=== PATIENT | male | born 1950 | race Caucasian/White ===

== ENCOUNTER → 2018-12-03 | Outpatient (CLI) | payer MEDICARE ==
[~2018-12-03] MED LIST: AMLODIPINE BESY10 MG PO; ARED2 PO; BUPROPION HCL150 M2 PO; STIOLTO RESPIMAT PO; TYLENOL WITH C1 EACH PO
--- NOTE | 2018-12-03 13:21 | Diagnostic Imaging Report ---
Thyroid ultrasound. History: Hypothyroidism Comparison: <None available>. Discussion: Transverse and longitudinal images of the thyroid were obtained demonstrating normal echogenicity of the thyroid. The sizes of the lobes are normal with the right thyroid lobe measuring 5.4 x 2.8 x 2.2 cm and the left measuring 4.0 x 1.5 x 1.6 cm. The isthmus is within normal limits measuring 0.4 cm. No nodules or masses are present. IMPRESSION: Normal thyroid ultrasound. Signed by: Dr. Giorgio Sullivan DO on 12/03/2018 1:17 PM
== END ==
LOC: US 11:03
PROVIDERS: ATTEND Family Medicine
DX: E03.9 Hypothyroidism, unspecified (principal)
CPT/HCPCS: 76536

== ENCOUNTER 2019-10-31 14:30 | Emergency (ER) | payer MEDICARE ==
[~2019-10-31] VITALS: Ht 190.5 cm; Wt 98.4 kg
--- OUTSIDE RECORDS SUMMARY | 2019-10-31 14:33 | XMS REPORT | Clinical Summary ---
Author Author [facility] Address Unknown Phone Unavailable Care Team Providers Care Lens Coater Name Role Phone Erasto Larkin MD PCP Allergies Not on File Medications Not on file Active Problems Not on file Encounters Care Team Description Date Type Specialty Shawn Pringle MD Dyspnea, unspecified type 03/02/2019 Hospital Radiology Encounter Shawn Pringle MD Dyspnea, unspecified type (Primary Dx) 03/02/2019 Transcribe Access Orders after 10/30/2018 Social History Date Tobacco Use Types Packs/Day Years Used Never Assessed Sex Assigned at Date Recorded Not on file Industry Job Start Date Occupation Not on file Not on file Not on file Travel End Travel History Travel Start No recent travel history available. Last Filed Vital Signs Not on file Plan of Treatment Health Maintenance Due Date Last Done Comments COLONOSCOPY SCREENING 2001 SHINGLES VACCINES (#1) 2001 65+ PNEUMOCOCCAL VACCINE 2016 04/18/2008, (2 of 2 - PPSV23) 06/23/2003 INFLUENZA VACCINE 01/22/2020 Procedures Comments Procedure Name Priority Date/Time Associated Diag nosis XR CHEST 2 VW Routine 03/02/2019 Dyspnea, unspec ified type 4:21 PM CDT after 10/30/2018 Results * XR Chest 2 Vw (03/02/2019 4:21 PM CDT) Specimen Narrative Performed At EXAMINATION: XR CHEST 2 VW [facility] CLINICAL HISTORY: R06.00 Dyspnea un specified, R06.00 COMPARISON: To previous study from IMPRESSION: Marked gaseous distention of the colon is partially visualized and is without significant interval change. The lungs are hypoventilated with bibas ilar atelectatic changes present. The heart is not enlarged. [id number] Procedure Note Hm Interface, Radiology Results Incoming - 03/02/2019 4:26 PM CDT EXAMINATION: XR CHEST 2 VW CLINICAL HISTORY: R06.00 Dyspnea unspecified, R06.00 COMPARISON: To previous study from 01/20/2018 IMPRESSION: Marked gaseous distention of the colon is partially visualized and is without significant interval change. The lungs are hypoventilated with bibasilar atelectatic changes present. The heart is not enlarged. 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
--- OUTSIDE RECORDS SUMMARY | 2019-10-31 14:33 | XMS REPORT | Clinical Summary ---
Author Author [facility] Address Unknown Phone Unavailable Care Team Providers Care Associate Director Regulatory Affairs Name Role Phone PCP Unavailable Allergies Not on File Medications Not on file Active Problems Not on file Social History Date Tobacco Use Types Packs/Day Years Used Never Assessed Sex Assigned at Date Recorded Not on file Industry Job Start Date Occupation Not on file Not on file Not on file Travel End Travel History Travel Start No recent travel history available. Last Filed Vital Signs Not on file Plan of Treatment Not on file Results Not on fileafter 10/30/2018
--- OUTSIDE RECORDS SUMMARY | 2019-10-31 14:34 | XMS REPORT | Summary of Care ---
Author Author [facility] Address Unknown Phone Unavailable Encounter HQ Encntr_alias(FIN) [id number] Date(s): 07/13/16 - 07/13/16 [facility] [address] [place] [address]- Final: Malignant neoplasm of lower gum Discharge Disposition: Home or Self Care Attending Physician: Efraín Butler DDS, MD Referring Physician: Efraín Butler DDS, MD Vital Signs No data available for this section Problem List No data available for this section Allergies, Adverse Reactions, Alerts No data available for this section Medications No data available for this section Results No data available for this section Immunizations No data available for this section Procedures No data available for this section Social History No data available for this section Assessment and Plan No data available for this section
--- OUTSIDE RECORDS SUMMARY | 2019-10-31 14:34 | XMS REPORT | Summary of Care ---
Author Author [facility] Organization [facility] Address Unknown Phone Unavailable Encounter HQ Encntr_alias(FIN) [id number] Date(s): 07/15/16 - 07/15/16 [facility] [address] [place] [address]- Discharge Disposition: Home or Self Care Attending Physician: Jose Andre MD Vital Signs No data available for [...]
--- OUTSIDE RECORDS SUMMARY | 2019-10-31 14:34 | XMS REPORT | Summary of Care ---
Author Author [facility] Address Unknown Phone Unavailable Encounter HQ Neginntr_lisa(FIN) [id number] Date(s): 11/06/16 - 12/05/16 [facility] [address] [place] [address]- Discharge Disposition: Home or Self Care Attending Physician: Jose Andre MD Vital Signs No data available for this section Problem List Condition Effective Dates Status Health Status Informan t COPD (chronic Active obstructive pulmonary disease)(Confirmed) HTN Active (hypertension)(Confi rmed) Allergies, Adverse Reactions, Alerts Substance Reaction Severity Status NKDA Active Medications No data available for this section Results No data available for this section Immunizations No data available for this section Procedures No data available for this section Social History Social History Type Response Smoking Status Former smoker; Type: Cigare ttes; Previous treatment: None; Ready to change: No; Concerns about tobacco use in house hold: No; Exposure to Tobacco Smoke None; Cigarette Smoking Last 365 Days N o; Reg Smoking Cessation Counseling No Assessment and Plan No data available for this section
--- OUTSIDE RECORDS SUMMARY | 2019-10-31 14:34 | XMS REPORT | Continuity of Care Document ---
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 06/26/2016 [facility] CONSULT Active 06/23/2016 [facility] CONSULY Active 08/22/2015 [facility] Chronic obstructive lung disease (disorder) Active Problem 01/05/2017 [facility] Hypertensive disorder, systemic arterial (disorder) Active Problem 01/05/2017 [facility] Final: Malignant neoplasm of lower gum 07/16/2016 [facility] MALIGNANT NEOPLASM OF LOWER GUM Active [facility] MALIGNANT NEOPLASM OF PROSTATE Active [facility] Medications Medication Details Route Status Patient Instructions Ordering Provider Order Date Source chlorhexidine gluconate 1.2 MG/ML Mouthwash Notes: (Same As: Peridex) Inactive 08/07/2016 [facility] chlorhexidine gluconate 1.2 MG/ML Mouthwash 0.018 gm = 15 mL, S&SPIT, BID, 0 Refill(s) Active 08/07/2016 [facility] Amoxicillin 875 MG / Clavulanate 125 MG Oral Tablet [Augmentin 875-mg] Notes: With food. (Same as: Augmentin 87 5) Inactive 08/07/2016 [facility] amLODIPine 5 mg oral tablet 5 mg = 1 tab, PO, Daily, 0 Refill(s) Active 08/07/2016 [facility] potassium phosphate-sodium phosphate 250 mg-280 mg-160 mg oral powder for reconstitution 2 pkt, PO, TID-Meals, 0 Refill(s) Active 08/07/2016 [facility] ondansetron 2 mg/mL injectable solution 4 mg = 2 mL, IVP, Q6H, PRN as needed for nausea/vomiting, 0 Refill(s) Active 08/07/2016 [facility] Melatonin DHT, Bedtime, PRN as needed for insomnia, 0 Refill(s) Active 08/07/2016 [facility] heparin 7,500 unit = 1.5 mL, S UB-Q, Q8H, 0 Refill(s) Active 08/07/2016 [facility] Aspirin 325 MG Oral Tablet 325 mg = 1 tab, DHT, Daily, 0 Refill(s) Active 08/07/2016 [facility] Amoxicillin 875 MG / Clavulanate 125 MG Oral Tablet [Augmentin 875-mg] 1 tab, DHT, Q12H, 0 Refill(s) Active 08/07/2016 [facility] Albuterol 0.833 MG/ML / Ipratropium Brom virgie 0.167 MG/ML Inhalant Solution [DuoNeb] 3 mL, NEB, RQ6H, 0 Refill(s) Active 08/07/2016 [facility] Acetaminophen 1,000 mg, [place], Q6 Hnow, 0 Refill(s) Active 08/07/2016 [facility] Tums Notes: (Same As: Tums) Ca lcium Carbonate 500 mg = 200 mg elemental calcium Dose = mg calcium carbonate ( mg elemental calcium) No Longer Active 08/07/2016 [facility] Beneprotein 7 gm pkt Notes: (S carlos alberto as: Beneprotein) No Longer Active 08/05/2016 [facility] Zofran Notes: (Same as: Zofran ) MEDICATION WASTE Product Size: 4 mg Product Wasted: ___ mg No Longer Active 08/04/2016 [facility] Artificial Tears BOTH EYES, Da artem, 0 Refill(s) Active 08/03/2016 [facility] Glycopyrrolate Notes: (Same as : Ariel) No Longer Active 08/03/2016 [facility] Melatonin 0.25 mg/mL oral liquid 1 mg, 1 mL, Route: DHT, Drug Form: LIQ, Dosing Weight 113.636, kg, Bedtime, PRN as needed for insomnia, Start date: 08/03/16 10:42:00 [employer], Duration: 30 day, Stop date: 09/02/16 10:41:00 CDT No Longer Active 08/03/2016 [facility] Dulcolax Laxative Notes: (Same As: Dulcolax, Bisco-Lax) No Longer Active 08/03/2016 [facility] Tylenol Notes: Max acetaminoph en = 4000mg/day (4 gm/day). (Same as: Tylenol) N o Longer Active 08/03/2016 [facility] Aspirin 325 MG Oral Tablet Not es: Take with food. No Longer Active 08/02/2016 [facility] Acetaminophen Notes: Max aceta minophen = 4000mg/day (4 gm/day). (Same as: Tylenol) N o Longer Active 08/02/2016 [facility] Artificial Tears 1 drp, Route: Each Affected Eye, TID, Drug form: SOLN, Start date: 08/01/16 17:00:00 [employer], Duration: 30 day, Stop date: 08/31/16 13:00:00 [employer] No Longer Active 08/01/2016 [facility] PHOS-NaK Notes: (Same as: Phos -NaK) Each 1.5 gm pkt has 250mg phosphorous. Mix w/2.5oz water and stir. No Longer Active 08/01/2016 [facility] Dulcolax Laxative Notes: (Same As: Dulcolax, Bisco-Lax) Inactive 08/01/2016 [facility] Reglan Notes: (Same as: Reglan) Inactive 08/01/2016 [facility] heparin Notes: porcine heparin No Longer Active 07/31/2016 [facility] Albuterol 0.833 MG/ML / Ipratropium Brom virgie 0.167 MG/ML Inhalant Solution [DuoNeb] Notes: (Same as: Duoneb) No Longer Active 07/31/2016 [facility] Bupropion Notes: (Same As: Wel lbutrin) No Longer Active 07/31/2016 [facility] Amlodipine Notes: (Same as: No rvasc) No Longer Active 07/31/2016 [facility] Oxycodone Hydrochloride 5 MG Oral Tablet Notes: (Same as: Roxicodone) No Longer Active 07/31/2016 [facility] pregabalin Notes: (Same as: Ly marissa) Inactive 07/31/2016 [facility] celecoxib Notes: NSAID. Please check indication. Not for seizure. (Same As: CeleBREX) No Longer Active 07/31/2016 [facility] Acetaminophen Notes: Infuse ov er 15 minutes Do not exceed 4gm/day of acetaminophen MEDICATION WASTE Product Size: 1000 mg Product Wasted: ___ mg No Longer Active 07/31/2016 [facility] Bacitracin 1 appl, Route: TOP, Q8H, Drug form: OINT, thin layer to neck and face incisions, Start date: 07/31/16 0:00:00 [employer], Duration: 30 day, Stop date: 08/29/16 16:00:00 [employer] No Longer Active 07/31/2016 [facility] aspirin 325 mg tablet Notes: T rosy with food. Inactive 07/31/2016 [facility] Aspirin 300 MG Rectal Suppository Notes: Refrigerate. Inactive 07/31/2016 [facility] Propofol 10 MG/ML Injectable Suspension Notes: If Diprivan - change bottle & tubing every 12 hr Per state nursing law propofol can only be given by a nurse if patient is intubated or being intubated (unless the nurse is a RN IMAGING). Same as: Diprivan No Longer Active 07/31/2016 [facility] Fentanyl 1,000 microgram, 20 m L, Rate: Titrate, Start Dose: 50 microgram/hr, Titration: 25 microgram/hour every 15 minutes, Goal(s): RASS -2, Max Dose: 300 microgram/hr, Route: IV, Dosing Weight 113.636 kg, Total Volume: 20, Start date: 07/30/16 19:15:00 [employer],... No Longer Active 07/31/2016 [facility] Zosyn Notes: (Same as: Zosyn) Dosing based on Piperacillin component MEDICATION WASTE Product Size: 3375 mg Product Wasted: ___ mg No Longer Active 07/31/2016 [facility] Unasyn 3 gm, Route: IVPB, Drug form: PDR/INJ, ABXQ6H, Dosing Weight 113.636, kg, Start date: 07/30/16 19:00:00 [employer], Duration: 30 day, Stop date: 08/29/16 13:00:00 [employer] Inactive 07/31/2016 [facility] nt Lactated Ringers 1,000 mL 1,00 0 mL, Rate: 100 ml/hr, Infuse over: 10 hr, Route: IV, Dosing Weight 113.636 kg, Total Volume: 1,000, Start date: 07/30/16 18:25:00 [employer], Duration: 30 day, Stop date: 08/29/16 18:24:00 [employer] No Longer Active 07/31/2016 [facility] Labetalol 20 mg, 4 mL, Route: IVP, Drug form: INJ, Q6H, Dosing Weight 113.636, kg, PRN Hypertension, Goal SBP 120-140, Start date: 07/30/16 18:22:00 [employer], Duration: 30 day, Stop date: 08/29/16 18:21:00 [employer] No Longer Active 07/31/2016 [facility] Hydralazine Notes: (Same as: A presoline) Push over 5 minutes No Longer Active 07/31/2016 [facility] Metoprolol Notes: (Same as: Lo pressor) Push over 2 minutes No Longer Active 07/31/2016 [facility] Aspirin 325 MG Oral Tablet Not es: Take with food. Inactive 07/31/2016 [facility] heparin Route: IVP, ONCE, Dosi ng Weight 113.636, kg, Start date: 07/30/16 16:17:00 [employer], Stop date: 07/30/16 16:17:00 [employer] Inactive 07/30/2016 [facility] Ancef 2 gm, Route: IVPB, ONCE, Dosing Weight 113.636, kg, Start date: 07/30/16 7:50:00 [employer], Duration: 1 doses or times, Stop date: 07/30/16 7:50:00 [employer], Surgical Prophylaxis Only; For patients < 120 kg Inactive 07/30/2016 [facility] buPROPion 150 mg/24 hours oral extended release tablet 150 mg = 1 tab, PO, BID, # 30 tab, 0 Refill(s) Active 07/19/2016 [facility] amLODIPine 10 mg oral tablet 1 0 mg = 1 tab, PO, Daily, # 90 tab, 0 Refill(s) No Longer Active 07/19/2016 [facility] quinapril 20 mg oral tablet 20 mg = 1 tab, PO, BID, # 30 tab, 0 Refill(s) No Longer Active 07/19/2016 [facility] n[facility] 60 ACTUAT olodaterol 0.0025 MG/ACTUAT / tiotropium 0.0025 MG/ACTUAT Metered Dose Inhaler [Stiolto] 2 puff, INHALATION, Daily, 0 Refill(s) No Longer Active 07/19/2016 [facility] Atenolol 50 MG Oral Tablet 50 mg = 1 tab, PO, Bedtime, # 30 tab, 0 Refill(s) No Longer Active 07/19/2016 [facility] Allergies, Adverse Reactions, Alerts No Known Medication Allergies Immunizations No Data Provided for This Section Results Order Name Results Value Reference Range Date Interpretation Comments Source ELECTROLYTES AGAP 11.2 10.0 - 20.0 08/07/2016 [facility] ELECTROLYTES eGFR 89 08/07/2016 Result Comment: The eGFR is calculated using the CKD-EPI formula. In most young, healthy individuals the eGFR will be >90 mL/min/1.73m2. The eGFR declines with age. An eGFR of 60-89 may be normal in some populations, particularly the elderly, for whom the CKD-EPI formula has not been extensively validated. Use of the eGFR is not recommended in the following populations:

Individuals with unstable creatinine concentrations, including patients and those with serious co-morbid conditions.

Patients with extremes in muscle mass or diet.

The data above are obtained from the National Kidney Disease Education Program (NKDEP) which additionally recommends that when the eGFR is used in patients with extremes of body mass index for purposes of drug dosing, the eGFR should be multiplied by the estimated BMI. [facility] ELECTROLYTES Potassium Lvl 4.2 3.5 - 5.1 08/07/2016 [facility] ELECTROLYTES Sodium Lvl 145 135 - 145 08/07/2016 [facility] ELECTROLYTES Creatinine Lvl 0.9 0 0.50 - 1.40 08/07/2016 [facility] ELECTROLYTES CO2 29 24 - 32 08/07/2016 [facility] ELECTROLYTES Chloride Lvl 109 95 - 109 08/07/2016 [facility] ELECTROLYTES Calcium Lvl 8.4 8.5 - 10.5 08/07/2016 [facility] ELECTROLYTES BUN 23 7 - 22 08/07/2016 [facility] ELECTROLYTES Glucose Lvl 107 70 - 99 08/07/2016 [facility] HEMATOLOGY Segs 80.0 45.0 - 75.0 08/07/2016 [facility] HEMATOLOGY Lymphocytes 9.5 20.0 - 40.0 08/07/2016 [facility] HEMATOLOGY Eosinophils # 0.2 0.0 - 0.5 08/07/2016 [facility] HEMATOLOGY Monocytes # 1.0 0.0 - 0.8 08/07/2016 [facility] HEMATOLOGY Lymphocytes # 1.1 1.0 - 5.5 08/07/2016 [facility] HEMATOLOGY Eosinophils 1.6 0.0 - 4.0 08/07/2016 [facility] HEMATOLOGY Monocytes 8.6 2.0 - 12.0 08/07/2016 [facility] HEMATOLOGY Segs-Bands # 9.5 1.5 - 8.1 08/07/2016 [facility] HEMATOLOGY Basophils 0.3 0.0 - 1.0 08/07/2016 [facility] HEMATOLOGY MPV 9.8 7.4 - 10.4 08/07/2016 [facility] HEMATOLOGY WBC 11.8 3.7 - 10.4 08/07/2016 [facility] HEMATOLOGY RDW 15.3 11.5 - 14.5 08/07/2016 [facility] HEMATOLOGY MCH 30.7 27.0 - 31.0 08/07/2016 [facility] HEMATOLOGY Platelet 206 133 - 450 08/07/2016 [facility] HEMATOLOGY RBC 3.08 4.70 - 6.10 08/07/2016 [facility] HEMATOLOGY Hct 28.4 42.0 - 54.0 08/07/2016 [facility] HEMATOLOGY Hgb 9.5 14.0 - 18.0 08/07/2016 [facility] HEMATOLOGY MCHC 33.3 32.0 - 36.0 08/07/2016 [facility] HEMATOLOGY MCV 92.1 80.0 - 94.0 08/07/2016 [facility] ELECTROLYTES AGAP 9.9 10.0 - 20.0 08/06/2016 [facility] ELECTROLYTES eGFR 94 08/06/2016 Result Comment: The eGFR is calculated using the CKD-EPI formula. In most young, healthy individuals the eGFR will be >90 mL/min/1.73m2. The eGFR declines with age. An eGFR of 60-89 may be normal in some populations, particularly the elderly, for whom the CKD-EPI formula has not been extensively validated. Use of the eGFR is not recommended in the following populations:

Individuals with unstable creatinine concentrations, including patients and those with serious co-morbid conditions.

Patients with extremes in muscle mass or diet.

The data above are obtained from the National Kidney Disease Education Program (NKDEP) which additionally recommends that when the eGFR is used in patients with extremes of body mass index for purposes of drug dosing, the eGFR should be multiplied by the estimated BMI. [facility] ELECTROLYTES Creatinine Lvl 0.8 0 0.50 - 1.40 08/06/2016 [facility] ELECTROLYTES BUN 21 7 - 22 08/06/2016 [facility] ELECTROLYTES Glucose Lvl 110 70 - 99 08/06/2016 [facility] ELECTROLYTES CO2 30 24 - 32 08/06/2016 [facility] ELECTROLYTES Chloride Lvl 106 95 - 109 08/06/2016 [facility] ELECTROLYTES Potassium Lvl 3.9 3.5 - 5.1 08/06/2016 [facility] ELECTROLYTES Sodium Lvl 142 135 - 145 08/06/2016 [facility] ELECTROLYTES Calcium Lvl 8.2 8.5 - 10.5 08/06/2016 [facility] HEMATOLOGY Eosinophils # 0.3 0.0 - 0.5 08/06/2016 [facility] HEMATOLOGY Monocytes # 1.1 0.0 - 0.8 08/06/2016 [facility] HEMATOLOGY Segs-Bands # 7.9 1.5 - 8.1 08/06/2016 [facility] HEMATOLOGY Basophils 0.3 0.0 - 1.0 08/06/2016 [facility] HEMATOLOGY Lymphocytes 9.8 20.0 - 40.0 08/06/2016 [facility] HEMATOLOGY Eosinophils 2.7 0.0 - 4.0 08/06/2016 [facility] HEMATOLOGY Monocytes 10.5 2.0 - 12.0 08/06/2016 [facility] HEMATOLOGY Lymphocytes # 1.0 1.0 - 5.5 08/06/2016 [facility] HEMATOLOGY Segs 76.7 45.0 - 75.0 08/06/2016 [facility] HEMATOLOGY WBC 10.4 3.7 - 10.4 08/06/2016 [facility] HEMATOLOGY RDW 15.3 11.5 - 14.5 08/06/2016 [facility] HEMATOLOGY MCHC 33.3 32.0 - 36.0 08/06/2016 [facility] HEMATOLOGY Platelet 181 133 - 450 08/06/2016 [facility] HEMATOLOGY MCH 30.3 27.0 - 31.0 08/06/2016 [facility] HEMATOLOGY MCV 91.2 80.0 - 94.0 08/06/2016 [facility] HEMATOLOGY Hgb 9.9 14.0 - 18.0 08/06/2016 [facility] HEMATOLOGY RBC 3.26 4.70 - 6.10 08/06/2016 [facility] HEMATOLOGY Hct 29.7 42.0 - 54.0 08/06/2016 [facility] HEMATOLOGY MPV 10.0 7.4 - 10.4 08/06/2016 [facility] HEMATOLOGY Atypical Lymphs 0.0 <=0.0 % 08/05/2016 [facility] HEMATOLOGY Polychrom Moder ate *ABN* (08/05/16 6:07 AM) None Seen 08/05/2016 [facility] HEMATOLOGY Myelocytes 2.0 <=0.0 % 08/05/2016 [facility] HEMATOLOGY Metamyelocytes 1.0 0.0 - 1.0 08/05/2016 [facility] HEMATOLOGY Basophils 1.0 0.0 - 1.0 08/05/2016 [facility] HEMATOLOGY Eosinophils 1.0 0.0 - 4.0 08/05/2016 [facility] HEMATOLOGY Monocytes 10.0 2.0 - 12.0 08/05/2016 [facility] HEMATOLOGY Lymphocytes 10.0 20.0 - 40.0 08/05/2016 [facility] HEMATOLOGY Bands 1.0 0.0 - 11.0 08/05/2016 [facility] HEMATOLOGY Segs 74.0 45.0 - 75.0 08/05/2016 [facility] HEMATOLOGY Basophils # 0.1 0.0 - 0.2 08/05/2016 [facility] HEMATOLOGY Eosinophils # 0.1 0.0 - 0.5 08/05/2016 [facility] HEMATOLOGY Monocytes # 1.0 0.0 - 0.8 08/05/2016 [facility] HEMATOLOGY Lymphocytes # 1.0 1.0 - 5.5 08/05/2016 [facility] HEMATOLOGY Segs-Bands # 7.4 1.5 - 8.1 08/05/2016 [facility] HEMATOLOGY WBC 9.9 3.7 - 10.4 08/05/2016 [facility] HEMATOLOGY RBC 3.35 4.70 - 6.10 08/05/2016 [facility] HEMATOLOGY Platelet 175 133 - 450 08/05/2016 [facility] HEMATOLOGY MPV 10.3 7.4 - 10.4 08/05/2016 [facility] HEMATOLOGY MCHC 32.4 32.0 - 36.0 08/05/2016 [facility] HEMATOLOGY RDW 14.9 11.5 - 14.5 08/05/2016 [facility] HEMATOLOGY MCH 29.6 27.0 - 31.0 08/05/2016 [facility] HEMATOLOGY Hct 30.5 42.0 - 54.0 08/05/2016 [facility] HEMATOLOGY MCV 91.2 80.0 - 94.0 08/05/2016 [facility] HEMATOLOGY Hgb 9.9 14.0 - 18.0 08/05/2016 [facility] CHEM PANEL Magnesium Lvl 2.5 1.8 - 2.4 08/03/2016 [facility] CHEM PANEL Phosphorus 2.6 2.5 - 4.5 08/03/2016 [facility] ELECTROLYTES AGAP 11.0 10.0 - 20.0 08/03/2016 [facility] ELECTROLYTES eGFR 91 08/03/2016 Result Comment: The eGFR is calculated using the CKD-EPI formula. In most young, healthy individuals the eGFR will be >90 mL/min/1.73m2. The eGFR declines with age. An eGFR of 60-89 may be normal in some populations, particularly the elderly, for whom the CKD-EPI formula has not been extensively validated. Use of the eGFR is not recommended in the following populations:

Individuals with unstable creatinine concentrations, including patients and those with serious co-morbid conditions.

Patients with extremes in muscle mass or diet.

The data above are obtained from the National Kidney Disease Education Program (NKDEP) which additionally recommends that when the eGFR is used in patients with extremes of body mass index for purposes of drug dosing, the eGFR should be multiplied by the estimated BMI. [facility] ELECTROLYTES Calcium Lvl 8.3 8.5 - 10.5 08/03/2016 [facility] ELECTROLYTES CO2 31 24 - 32 08/03/2016 [facility] ELECTROLYTES Potassium Lvl 4.0 3.5 - 5.1 08/03/2016 [facility] ELECTROLYTES Chloride Lvl 106 95 - 109 08/03/2016 [facility] ELECTROLYTES Creatinine Lvl 0.8 6 0.50 - 1.40 08/03/2016 [facility] ELECTROLYTES Sodium Lvl 144 135 - 145 08/03/2016 [facility] ELECTROLYTES BUN 17 7 - 22 08/03/2016 [facility] ELECTROLYTES Glucose Lvl 122 70 - 99 08/03/2016 [facility] BODY FLUIDS Amyl BF Type ERIBERTO D rain *NA* (08/02/16 1:24 PM) 08/02/2016 [facility] BODY FLUIDS Amylase BF 157 08/02/2016 [facility] BODY FLUIDS Trig BF Type ERIBERTO D rain *NA* (08/02/16 1:24 PM) 08/02/2016 [facility] BODY FLUIDS Trig BF 35 08/02/2016 [facility] CHEM PANEL Phosphorus 2.2 2.5 - 4.5 08/02/2016 [facility] CHEM PANEL Magnesium Lvl 2.4 1.8 - 2.4 08/02/2016 [facility] CHEM PANEL Magnesium Lvl 2.2 1.8 - 2.4 08/01/2016 [facility] CHEM PANEL Phosphorus 2.1 2.5 - 4.5 08/01/2016 [facility] URINE AND STOOL UA Urobilinogen <=1.0 mg/dL 0.1 - 1.0 07/31/2016 [facility] URINE AND STOOL UA Sq Epi None Seen 07/31/2016 [facility] URINE AND STOOL UA Mucus Few /LPF None Seen /LPF 07/31/2016 [facility] URINE AND STOOL UA Amorph [place] Occasional /HPF None Seen /HPF 07/31/2016 [facility] URINE AND STOOL UA WBC 7 0 - 5 07/31/2016 [facility] URINE AND STOOL UA RBC 3 0 - 2 07/31/2016 [facility] URINE AND STOOL UA Bacteria Occasional /HPF None Seen /HPF 07/31/2016 [facility] URINE AND STOOL UA Blood Negative (07/31/16 12:55 PM) Negative 07/31/2016 [facility] URINE AND STOOL UA Bili Negative *NA* (07/31/16 12:55 PM) Negative 07/31/2016 [facility] URINE AND STOOL UA Nitrite Negative (07/31/16 12:55 PM) Negative 07/31/2016 [facility] URINE AND STOOL UA Leuk Est Trace *ABN* (07/31/16 12:55 PM) Negative 07/31/2016 [facility] URINE AND STOOL UA Ketones Negative mg/dL Negative mg/dL 07/31/2016 [facility] URINE AND STOOL UA Glucose Negative mg/dL Negative mg/dL 07/31/2016 [facility] URINE AND STOOL UA pH 5.5 5.0 - 8.0 07/31/2016 [facility] URINE AND STOOL UA Spec Grav 1.033 <=1.030 07/31/2016 [facility] URINE AND STOOL UA Protein 30 mg/dL Negative mg/dL 07/31/2016 [facility] URINE AND STOOL UA Color Yellow *NA* (07/31/16 12:55 PM) Yellow 07/31/2016 [facility] URINE AND STOOL UA Turbidity Clear (07/31/16 12:55 PM) Clear 07/31/2016 [facility] PARATHYROID PROFILE Ca Norm WB 1.05 1.05 - 1.25 07/31/2016 [facility] PARATHYROID PROFILE Ca Ion WB 1.04 1.05 - 1.25 07/31/2016 [facility] BLOOD BANK RESULTS ABO/Rh B POS 07/30/2016 [facility] BLOOD BANK RESULTS Antibody Scrn Negative (07/30/16 6:20 AM) 07/30/2016 [facility] HEMATOLOGY PTT 35.6 22.9 - 35.8 07/30/2016 [facility] HEMATOLOGY INR 1.13 0.85 - 1.17 07/30/2016 [facility] HEMATOLOGY PT 14.7 12.0 - 14.7 07/30/2016 [facility] HEMATOLOGY Basophils # 0.1 0.0 - 0.2 07/19/2016 [facility] Pathology Reports No Data Provided for This Section Diagnostic Reports Report Value Date Source PET CT Head/Neck CA restaging PET CT Head/Neck CA restaging TECHNIQUE: 15.3 mCis of FDG were administered intravenously and a series of overlapping images were obtained from the skull base to the proximal thighs utilizing a PET/CT hybrid device. The CT was utilized for attenuation correction and anatomic correlation and not as an independent diagnostic study. BLOOD GLUCOSE: 96 mg/dl COMPARISON: 07/13/2016 CLINICAL HISTORY: C03.1 Malignant neoplasm of lower gum - TSR=7798.02 mGy*cm , CTDIvol= 11.44 mGy (Body) 3.38 mGy (Head/Neck); FINDINGS: HEAD AND NECK: Postoperative change related to partial resection of left mandible is evident. There is small focus of increased metabolic activity in the soft tissues superficial to the left mandible bone graft. Maximum SUV is 6.2 on image 59. This may represent postsurgical change but possibility of residual neoplasm is difficult to exclude. Correlation with other clinical data and short-term imaging follow-up is recommended. No enlarged or FDG avid lymph nodes are noted in the neck on either side. There is interval increase in FDG avidity in both lobes of thyroid gland. Maximum SUV is 4.6 on image 57. CHEST: Mild stable cardiomegaly. Interval resolution of abnormal activity corresponding to the small right axillary lymph node. ABDOMEN AND PELVIS: Stable changes of right nephrectomy. Physiologic activity is visualized in the solid organs, genitourinary tract and gastrointestinal tract. SKELETON: No abnormal activity is visualized. Changes related to right hip fixation are noted. Persistent heterogeneity in activity throughout the regional skeleton is similar to previous study. IMPRESSION: Extensive postoperative changes left face and neck region. Small focus of increased metabolic activity in the soft tissues superficial to the left mandible bone graft may be related to postsurgical change but possibility of residual neoplasm is not excluded. Correlation with other clinical data and short-term imaging follow-up is recommended. Mild interval increase in FDG avidity in both lobes of thyroid gland. Findings may be related to thyroiditis. [id number] 03/01/2017 [facility] Abdomen AP DX EXAM: XR ABDOMEN 1 VIEW DATE: 08/03/2016 3:16 PM [employer]TAIN [employer]SEM[employer]ER INDICATION: Tube placement/removal/reposition ADDITIONAL INFORMATION: None. COMPARISON: 08/01/2016 at 0109. TECHNIQUE: Limited AP view of the abdomen for tube placement assessment. Number of images: 1 FINDINGS: Transesophageal feeding tube tip: A feeding tube has been slightly advanced with its distal tip just to the right of the T12 vertebral body over the expected location of the gastric antrum or gastric pylorus.Advancement of this tube into the 2nd portion of the duodenum is recommended prior to feeding. Other tubes and lines: Surgical clips are seen over the right upper quadrant. A medical tubing overlies the left chest and upper abdomen. Tracheostomy tube is visualized. Visualized bowel: Bowel gas pattern is nonobstructive where visualized. Stomach bubble is moderately distended with gas vein the left hemidiaphragm. No free air is seen. Lung bases: Areas of linear subsegmental atelectasis are seen in the lung bases. IMPRESSION: 1. Feeding tube position as above. Adva ncement is recommended as above. 2. Bowel gas pattern is nonobstructive where visualized. Stomach is moderately distended with gas. 08/03/2016 [facility] Chest 1view DX EXAM: XR CHEST 1 VIEW DATE: 08/02/2016 3:00 AM [employer] INDICATION: Abnormal chest sounds CLINICAL HISTORY: Recent resection of left mandibular SCC COMPARISON: Chest radiograph 08/01/2016 TECHNIQUE: AP chest FINDINGS: Lines, tubes and hardware: There has been interval removal of the nasogastric tube. The Dobbhoff tube courses below the diaphragm. Tracheostomy is unchanged. Lungs and pleura: The lungs are hypoinflated with bibasilar subsegmental atelectasis and bronchovascular crowding. No pleural effusion. No discrete pneumothorax is seen within limitations of semierect technique. Heart and mediastinum: The heart size and mediastinal contours are stable. Bones: Stable. IMPRESSION: 1. Interval removal of nasogastric tube . Stable remaining support lines and tubes. 2. Hypoinflated lungs with bibasilar warren bsegmental atelectasis. 08/02/2016 [facility] Abdomen AP DX EXAM: XR ABDOMEN 1 VIEW DATE: 07/31/2016 at 0109 hours INDICATION: Tube placement/removal/reposition ADDITIONAL INFORMATION: None. COMPARISON: None. TECHNIQUE: AP view of the abdomen. FINDINGS: Lines and tubes: A Dobbhoff tube has been advanced from prior position. The tip approaches midline at the level of distal stomach. Lower thorax: Unremarkable where visualized. Bowel: Air distends loops of colon in the portions of the upper abdomen included in this [id number]. Solid organs: No abnormal mass or organomegaly seen. No abnormal calcifications found. Bones: Marginal osteophytes and disc space narrowing are present at thoracolumbar spine. IMPRESSION: 1. Dobbhoff tube advanced from prior po sition with the tip now followed to the level of distal stomach. 2. Air distends loops of colon in the p ortions of the upper abdomen included in this [id number]. 08/01/2016 [facility] Chest 1view DX EXAM: XR CHEST 1 VIEW DATE: 08/01/2016 3:00 AM [employer] INDICATION: Abnormal chest sounds. FINDINGS: Comparison is made to July 30. The lungs are low in volume with bilateral lower lobe subsegmental atelectasis. The cardiomediastinal silhouette is stable. No pleural effusions are identified. The Dobbhoff feeding tube has been advanced, now with the tip over the duodenal bulb. There is a tracheostomy tube in place. IMPRESSION: Interval advancement of the Dobbhoff feeding tube. Otherwise, no significant change from July 30. 08/01/2016 [facility] Abdomen 1 v for Placement DX E XAM: XR ABDOMEN 1 VIEW DATE: 07/31/2016 10:12 AM [employer] INDICATION: Tube Reposition NG ADDITIONAL INFORMATION: None. COMPARISON: None. TECHNIQUE: AP view of the abdomen. FINDINGS: A Dobbhoff tube is seen with tip overlying the gastric body. Recommend further advancement. IMPRESSION: 1. A Dobbhoff tube is seen with tip ove rlying the gastric body. Recommend further advancement. 07/31/2016 [facility] Chest 1view DX EXAM: XR CHEST 1 VIEW DATE: 07/30/2016, 1904 hours INDICATION: Tube placement/removal/reposition COMPARISON: None TECHNIQUE: AP chest FINDINGS: The lungs are incompletely expanded bilaterally. Subsegmental atelectasis is present in both lung bases. No pneumothorax or pleural effusion is seen. The cardiac silhouette is incompletely seen because of slight elevation of the left hemidiaphragm and rotated patient positioning on this image. The tip of the tracheostomy tube projects over the trachea. The stomach is mildly distended with gas. IMPRESSION: 1. The tip of the Dobbhoff feeding tube lies high in position in the distal esophagus at the gastroesophageal junction. 2. Incomplete lung expansion with bibasi lar subsegmental atelectasis. 07/30/2016 [facility] Abdomen AP DX EXAM: XR ABDOMEN 1 VIEW DATE: 07/30/2016, 1906 hours INDICATION: Tube placement/removal/reposition COMPARISON: None TECHNIQUE: AP abdomen x 3 FINDINGS: The hemidiaphragms in the lower pelvis are not included on these images. The sigmoid colon is distended with gas, with a small amount of gas scattered elsewhere within the intestines. The stomach is also mildly distended with gas. No dilated small bowel loops are seen. Clips are noted to the right of the spine with prominent bridging osteophytes at L1-2. IMPRESSION: 1. Portions of a Dobbhoff feeding tube a re seen on these images but the tip is not visible on the latest of the images. 2. No findings of bowel obstruction. 07/30/2016 [facility] PET CT Head/Neck CA initial staging PET CT Head/Neck CA initial staging TECHNIQUE: 14.1 mCis of FDG were administered intravenously and a series of overlapping images were obtained from the skull base to the proximal thighs utilizing a PET/CT hybrid device. The CT was utilized for attenuation correction and anatomic correlation and not as an independent diagnostic study. (Neck)CTDIvol - 4.78mGy DLP - 149.97mGy- cm; (Body)CTDIvol - 13.20mGy DLP - 1363.38mGy-cm BLOOD GLUCOSE: 90 mg/dl COMPARISON: CT chest and neck 07/02/2016 CLINICAL HISTORY: C03.1-Cancer of the Lower [place], Initial Staging; FINDINGS: HEAD AND NECK: Corresponding to the mass in the gingival soft tissues superficial to the left mandible, extensive increase in metabolic activity is noted. The mass measures approximately 3.8 x 1.8 cm in size and demonstrates maximum SUV of 11.6 on image 45. Enlarged mildly FDG avid lymph node is noted in the left submandibular region approximately 1.8 x 1.3 cm in size. Maximum SUV is 2.9 on image 75. Additional subcentimeter lymph nodes are noted along the left deep cervical chain. Mild nonspecific increase in metabolic activity is present in left lobe of thyroid gland. Maximum SUV is 4.8 on image 94. CHEST: Mildly hypermetabolic lymph node is visualized in the right axilla. Maximum SUV is 3.4 on image 121. Mild cardiomegaly. ABDOMEN AND PELVIS: Status post right nephrectomy. Physiologic activity is visualized in the solid organs, genitourinary tract and gastrointestinal tract. SKELETON: There is heterogeneity in metabolic activity in the regional skeleton. Findings are unlikely to represent metastatic disease but correlation with other clinical data is recommended. 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 There is local jose metastasis to the left deep cervical chain, with the largest lymph node noted adjacent to the left submandibular gland. Nonspecific increase in metabolic activity, left lobe of thyroid gland. Further evaluation with thyroid ultrasound is recommended. Nonspecific mildly hypermetabolic lymph node, right axilla. Heterogeneous metabolic activity is noted in the regional skeleton. 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 Sagittal and coronal computer generated MIP reformats were created and reviewed. Total DLP for this exam was 616 mGy*cm. FINDINGS: The lower abdominal aorta is normal in caliber without significant atherosclerotic disease. The bilateral common, internal and external iliac arteries are patent without significant narrowing or calcification. Right lower extremity: The right common femoral, superficial femoral and profunda femoral arteries are patent without atherosclerotic disease. The right popliteal artery is patent. There is three-vessel runoff to the right foot. Left lower extremity: The left common femoral, superficial femoral and profunda femoral arteries are patent without atherosclerotic disease. The left popliteal artery is patent. There is three-vessel runoff to the left foot. IMPRESSION: Normal arterial anatomy. No evidence of atherosclerotic disease. 07/10/2016 [facility] [place] Neck/Chest w contrast CT CT ne ck and chest with intravenous contrast 07/02/2016 Clinical: Lower gingival malignancy. Comparison: No prior exam. Findings: Axial images were obtained. Sagittal and coronal MPR images are also submitted. The DLP is 414 mGy*cm. CT neck: Left lower buccal alveolar space or gingival ill-defined soft tissue mass is present measuring approximately 3.4 x 1.8 cm axial dimensions. The left mandibular cortex remains intact. Left submandibular (left level 1B) adenopathy is present measuring 1.9 x 1.3 cm axial dimensions. Borderline left level 1A lymph node measures 0.9 x 0.6 cm. No additional neck adenopathy is seen. The upper aerodigestive tract is otherwise unremarkable. The major salivary glands and thyroid gland appear unremarkable. Mild multiple level cervical spine degenerative changes are present. Osteopenia is present. CT CHEST: No mediastinal or hilar adenopathy. The heart size is within normal limits. No pulmonary mass or consolidation. Bibasilar subsegmental atelectasis is present. Osteopenia is present. Exaggerated thoracic spine kyphosis is present without vertebral compression fracture. Impression: 1. Left lower gingival ill-defined mass as above. Intact adjacent left mandibular cortex. 2. Left level 1B adenopathy. Borderline left level 1A lymph node. 3. No chest mass. Mild bibasilar atelect asis. 07/02/2016 YANIV Hauser Consultation Notes No Data Provided for This Section Discharge Summaries No Data Provided for This Section History and Physicals No Data Provided for This Section Vital Signs Vital Sign Value Date Comments Source Systolic (mm Hg) 121 08/07/2016 [facility] Diastolic (mm Hg) 68 08/07/2016 [facility] Temperature Oral (F) 97.9 F 08/07/2016 [facility] Respitory Rate 18 08/07/2016 [facility] Heart Rate 109 08/07/2016 [facility] Respitory Rate 18 08/07/2016 [facility] Temperature Oral (F) 97.6 F 08/07/2016 [facility] Heart Rate 105 08/07/2016 [facility] Respitory Rate 18 08/07/2016 [facility] Systolic (mm Hg) 130 08/07/2016 [facility] Diastolic (mm Hg) 70 08/07/2016 [facility] Heart Rate 80 08/07/2016 [facility] Systolic (mm Hg) 143 08/07/2016 [facility] Diastolic (mm Hg) 77 08/07/2016 [facility] Temperature Oral (F) 98.2 F 08/07/2016 [facility] Height 190.5 cm 08/01/2016 [facility] Height 190.5 cm 08/01/2016 [facility] Height 190.5 cm 07/31/2016 [facility] Weight 113.636 07/31/2016 [facility] BMI Calculated 31.31 07/31/2016 [facility] Weight 113.636 07/30/2016 [facility] BMI Calculated 31.31 07/30/2016 [facility] Weight 113.636 07/19/2016 [facility] BMI Calculated 31.31 07/19/2016 [facility] Encounters Location Location Details Encounter Type Encounter Number Reason For Visit Attending Provider ADM Date DC Date Status Source [facility] [place] [facility] [id number] Efraín [facility] 07/02/2016 07/03/2016 [facility] [place] [facility] [place] [facility] [id number] 01 Efraín [facility] 07/10/2016 07/11/2016 [facility] [place] [facility] Outpatient [id number] [facility] 07/13/2016 07/14/2016 [facility] Outpatient [id number] [facility] 07/15/2016 07/16/2016 [place] [facility] [id number] [facility] 07/30/2016 08/07/2016 [facility] Recurring [id number] [facility] 09/05/2016 10/05/2016 [facility] Recurring [id number] [facility] 10/07/2016 11/06/2016 [facility] Recurring [id number] [facility] 11/06/2016 12/06/2016 [facility] Outpatient [id number] [facility] 01/02/2017 01/03/2017 [facility] Procedures No Data Provided for This Section Assessment and Plan Assessment and Plan Date Source Extracted from:Title: OMFS Progress Note Author: Dylan Patel DDS Date: 08/07/16 OMFS Progress Note Date and time: HD# 9, POD# 8, SP: 1. 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 2. Left neck dissection. 3. Left free fibula flap reconstruction for left mandible. 4. Reconstruction of mandible with of f ree fibula flap 5. Split-thickness skin graft harvested from the left thigh. 6. Extraction of multiple teeth. 7. Tracheostomy. Subjective: No acute events overnight. Pt is trached, tolerating cap all day. Pt is able to void, tolerating bolus tubefeeds, reports minimal pain. Pt states that he is able to sleep a little better. Pt was transferred to floor and Hiro was DC on 08/02/16. PT/OT consulted on 08/03/16 and pt tolerated well OOB to chair with ambulation around the harmon. On 08/05/16, Pt was downsized to 6 cuffless with PMV and 1x neck drain and 1x leg drain removed. Pt was capped on 08/06/16 and tolerating well. No complaints. Objective: Vitals Tmp(F) Pulse BP RR SpO2 FIO2 08/07 04:19 ---- 80 143/77 - - --- --- 08/07 03:21 97.8 104 169/89 20 95 21% 08/06 23:21 97.7 119 156/85 18 97 21% 08/06 20:25 98.2 105 130/69 18 97 21% 08/06 16:12 97.6 100 133/72 18 99 --- 24 Hr Tmax: 98.3F (36.83c) at 08/06 08:1 6 Vital Signs are the last 5 in the past 48 hours. Exam: General: trached and capped with NAD Head: Moderate surgical lower face edema Ears: Auricles WNL Eyes: Orbits WNL, Vision WNL Nose: Nares patent, No discharge, DHT in nare Neck: Trach tube in place and hemostatic with cap in place, neck incisions hemostatic with sutures intact and bacitracin, 1x ERIBERTO drains with serosanguinous drainage Intra-oral: Extraction sites hemostatic, flap is soft/skin colored/warm with strong doppler sound anterior to stitch marking, no dehiscence Abdominal: Non-distended, non-tender Neuro: GCS11T Extremeties: Left leg hemostatic with dressing in place, MultiPodas boot, 1x ERIBERTO drains with serosanguinous drainage, wound vac holding suction, left anterior thigh hemostatic with tegaderm in place Pulmonary: CTAB, Trached with cap Cardio: RRR Labs: Hct: 28.4 % Low (08/07/16 01:48:17) Hgb: 9.5 g/dL Low (08/07/16 01:48:17) MCH: 30.7 pg (08/07/16 01:48:17) MCHC: 33.3 g/dL (08/07/16 01:48:17) MCV: 92.1 fL (08/07/16 01:48:17) MPV: 9.8 fL (08/07/16 01:48:17) Platelet: 206 K/CMM (08/07/16 01:48:17) RBC: 3.08 M/CMM Low (08/07/16 01:48:17) RDW: 15.3 % High (08/07/16 01:48:17) WBC: 11.8 K/CMM High (08/07/16 01:48:17) CO2: 29 mEq/L (08/07/16 02:33:52) Chloride Lvl: 109 mEq/L (08/07/16 02:33:52) Sodium Lvl: 145 mEq/L (08/07/16 02:33:52) Glucose Lvl: 107 mg/dL High (08/07/16 02:33:52) Calcium Lvl: 8.4 mg/dL Low (08/07/16 02:33:52) Potassium Lvl: 4.2 mEq/L (08/07/16 02:33:52) BUN: 23 mg/dL High (08/07/16 02:33:52) AGAP: 11.2 mEq/L (08/07/16 02:33:52) Creatinine Lvl: 0.90 mg/dL (08/07/16 02:33:52) INR: 1.13 (07/30/16 06:55:53) Films: No new imaging Pathology results: 1. Left mandible, anterior lateral cyndie n, biopsy: - Negative for carcinoma 2. Anterior gingiva, margin, biopsy: - Negative for carcinoma - Low-grade squamous dysplasia with ulceration 3. Left mandible, postero-lateral margin , biopsy: - Negative for carcinoma 4. Left mandible, medial margin, biopsy: - Negative for carcinoma 5. Left neck, level 1A and 1B, lymph nod e dissection: - Ten lymph nodes, negative for carcinoma (0/10) - Salivary gland with no pathologic abnormality 6. Left neck, level 2 and 3, lymph node dissection: - Nineteen lymph nodes, negative for carcinoma (0/19) Assessment: 66 y/o male HD# 9, POD# 8, SP: 1. 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 2. Left neck dissection. 3. Left free fibula flap reconstruction for left mandible. 4. Reconstruction of mandible with of f ree fibula flap 5. Split-thickness skin graft harvested from the left thigh. 6. Extraction of multiple teeth. 7. Tracheostomy. Patient is doing well, no complications, trached and capped, breathing well. Pt is following normal postoperative course. Plan: Consults - PT/OT for ambulation assistance. OOB to chair - Nutrition for Bolus feed recommendations - Case management for transfer to SNF or LTAC Flap: - Q4H - Flap checks for nurse - Q12H - Flap checks for resident - ASA 325mg via DHT - Lovenox Donor site - Q6H perfusion check of extremity - Keep donor site elevated on pillows - Warm blanket over extremity - Multipodas boot (Fibula) at all times - Wound vac remains until discharge - OMFS will remove all drains before DC - Touchdown weight bearing on LLE Resp: - Trach is 6 cuffless Shiley and capped - Pt to be DC with capped trach Heme - trend CBC Endo - Insulin sliding scale / fingersticks q6h Neuro - Wean pain medications via DHT - No hiro. UOP is good. GI - NPO / continue bolus feeds Fluids / Electrolytes / Nutrition - IV fluids DC Dispo: Hospitalist is primary. Pt ready to DC to SNF/LTAC today. Pt to f/u with Dr. Butler at [facility] on 08/14/16. Pt to call [phone] to confirm appointment Discharge with: - Aspirin 325mg [id number] - Augmentin 875mg BID x7 days - Chlorhexidine 0.12% rinse and spit BID - Continue home meds - Bolus feed Home care instructions: - Oral: Chlorhexidine sponge TID - Trach: Keep clean - Left thigh: Change Tegaderm when leaki ng - Left leg: Xeroform, kerlex, tucker every other day. MultiPodas boot to remain on at all times. 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 Efraín Butler DDS, MD Pre-op Diagnosis: Left mandibular SCCA Planned procedures: 1. Resection of left mandibular SCCA 2. Left neck dissection 3. Left fibula free flap reconstruction 4. ORIF 5. STSG from anterior thigh 6. 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, IV start, T&S Consent: Sign and on chart Anesthesia: General Labs: Hct: 46.0 % (07/19/16 13:51:03) Hgb: 15.0 g/dL (07/19/16 13:51:03) MCH: 29.7 pg (07/19/16 13:51:03) MCHC: 32.7 g/dL (07/19/16 13:51:03) MCV: 91.0 fL (07/19/16 13:51:03) MPV: 10.9 fL High (07/19/16 13:51:03) Platelet: 166 K/CMM (07/19/16 13:51:03) RBC: 5.05 M/CMM (07/19/16 13:51:03) RDW: 15.0 % High (07/19/16 13:51:03) WBC: 10.1 K/CMM (07/19/16 13:51:03) CO2: 31 mEq/L (07/19/16 14:08:53) Chloride Lvl: 106 mEq/L (07/19/16 14:08:53) Sodium Lvl: 144 mEq/L (07/19/16 14:08:53) Glucose Lvl: 85 mg/dL (07/19/16 14:08:53) Calcium Lvl: 8.6 mg/dL (07/19/16 14:08:53) Potassium Lvl: 4.5 mEq/L (07/19/16 14:08:53) BUN: 12 mg/dL (07/19/16 14:08:53) AGAP: 11.5 mEq/L (07/19/16 14:08:53) Creatinine Lvl: 0.87 mg/dL (07/19/16 14:08:53) Assessment and Plan: 1. Patient is a 66 yo male with above s pecified procedure planned for 07/30/16 with general anesthesia 2. Procedure options, risks and benefit s reviewed with patient. Patient expresses understanding, and agrees to proceed with procedure. 3. Pt H&P is updated and correct withou t any changes 4. Permit signed and on chart Signature: Dylan Patel DDS gas pit worker, PGY1 08/07/2016 [facility] Plan of Care No Data Provided for This Section Social History Social History Date Source Social History TypeResponse Smoking Status Former smoker; Type: Cigarettes; Previous treatment: None; Ready to change: No; Concerns about tobacco use in household: No; Exposure to Tobacco Smoke None; Cigarette Smoking Last 365 Days No; Reg Smoking Cessation Counseling No 07/31/2016 [facility] Social History TypeResponse Smoking Status Former smoker; Type: Cigarettes; Previous treatment: None; Ready to change: No; Concerns about tobacco use in household: No; Exposure to Tobacco Smoke None; Cigarette Smoking Last 365 Days No; Reg Smoking Cessation Counseling No 07/31/2016 [facility] No data available for this section 07/11/2016 YANIV Hauser Family History No Data Provided for This Section Advance Directives No Data Provided for This Section Functional Status No Data Provided for This Section
--- OUTSIDE RECORDS SUMMARY | 2019-10-31 14:34 | XMS REPORT | Summary of Care ---
Author Author [facility] Organization [facility] Address Unknown Phone Unavailable Encounter BLESSING Miller(ALISTAIR) [id number] Date(s): 07/30/16 - 08/07/16 [facility] [address] [facility] provided by [facility] [employer] [facility] [employer] [place] [address]- Discharge Disposition: [facility] Facility Attending Physician: Turner Haley MD Admitting Physician: Efraín Butler DDS, MD Referring Physician: Efraín Butler DDS, MD Vital Signs 1 2 3 Most recent to oldest [Reference Range]: 190.5 cm (08/01/16 4:49 AM) 190.5 cm (07/31/16 11:14 PM) 190.5 cm (07/31/16 3:52 AM) Height 97.9 DegF (08/07/16 1:06 PM) 97.6 DegF (08/07/16 8:24 AM) 98.2 DegF (08/06/16 8:25 PM) Temperature Oral [96.4-99.1 DegF] 121/68 mmHg (08/07/16 1:06 PM) 130/70 mmHg (08/07/16 8:24 AM) 143/77 mmHg *HI* (08/07/16 4:19 AM) Blood Pressure [90-140/60-90 mmHg] 18 BRMIN (08/07/16 1:06 PM) 18 BRMIN (08/07/16 9:05 AM) 18 BRMIN (08/07/16 8:24 AM) Respiratory Rate [14-20 BRMIN] 109 bpm *HI* (08/07/16 1:06 PM) 105 bpm *HI* (08/07/16 8:24 AM) 80 bpm (08/07/16 4:19 AM) Peripheral Pulse Rate [60-100 bpm] 113.636 kg (07/30/16 10:56 PM) 113.636 kg (07/30/16 5:54 AM) 113.636 kg (07/19/16 10:42 AM) Weight 31.31 m2 (07/30/16 10:56 PM) 31.31 m2 (07/30/16 5:54 AM) 31.31 m2 (07/19/16 10:42 AM) Body Mass Index Problem List Condition Effective Dates Status Health Status Informan t COPD (chronic Active obstructive pulmonary disease)(Confirmed) HTN Active (hypertension)(Confi rmed) Allergies, Adverse Reactions, Alerts Substance Reaction Severity Status NKDA Active Medications acetaminophen 1,000 mg, 100 mL, Route: IVPB, Drug form: INJ, Q6H, Dosing Weight 113.636, kg, P riority: NOW, Start date: 07/31/16 3:27:00 SURVEYOR ROD HELPER, Duration: 48 hr, Stop date: 07/24 0:00:00 SURVEYOR ROD HELPER Notes: Infuse over 15 minutesDo not exceed 4gm/day of acetaminophen MEDICAT ION WASTE Product Size: 1000 mgProduct Wasted: ___ mg Start Date: 07/31/16 Stop Date: 08/01/16 Status: Discontinued acetaminophen 650 mg, 20.3 mL, Route: NJ, Drug form: LIQ, Q6H, Dosing Weight 113.636, kg, Star t date: 08/01/16 18:00:00 SURVEYOR ROD HELPER, Stop date: 08/31/16 12:00:00 SURVEYOR ROD HELPER Notes: Max acetaminophen = 4000mg/day (4 gm/day). (Same as: Tylenol) Start Date: 08/01/16 Stop Date: 08/03/16 Status: Discontinued acetaminophen 1,000 mg, NJ, Q6Hnow, 0 Refill(s) Start Date: 08/07/16 Status: Ordered amLODIPine 5 mg, 1 tab, Route: PO, Drug form: TAB, Daily, Dosing Weight 113.636, kg, Start date: 07/31/16 9:00:00 SURVEYOR ROD HELPER, Duration: 30 day, Stop date: 08/29/16 9:00:00 SURVEYOR ROD HELPER Notes: (Same as: Norvasc) Start Date: 07/31/16 Stop Date: 08/07/16 Status: Discontinued amLODIPine 10 mg oral tablet 10 mg = 1 tab, PO, Daily, # 90 tab, 0 Refill(s) Start Date: 07/19/16 Stop Date: 08/07/16 Status: Discontinued amLODIPine 5 mg oral tablet 5 mg = 1 tab, PO, Daily, 0 Refill(s) Start Date: 08/07/16 Status: Ordered Ancef 2 gm, Route: IVPB, ONCE, Dosing Weight 113.636, kg, Start date: 07/30/16 7:50:00 SURVEYOR ROD HELPER, Duration: 1 doses or times, Stop date: 07/30/16 7:50:00 SURVEYOR ROD HELPER, Surgical Prop hylaxis Only; For patients < 120 kg Start Date: 07/30/16 Stop Date: 07/30/16 Status: Completed Artificial Tears BOTH EYES, Daily, 0 Refill(s) Start Date: 08/03/16 Status: Ordered Artificial Tears 1 drp, Route: Each Affected Eye, TID, Drug form: SOLN, Start date: 08/01/16 17:0 0:00 SURVEYOR ROD HELPER, Duration: 30 day, Stop date: 08/31/16 13:00:00 SURVEYOR ROD HELPER Start Date: 08/01/16 Stop Date: 08/07/16 Status: Discontinued aspirin 300 mg rectal suppository 300 mg, 1 supp, Route: AK, Drug form: SUPP, ONCE, Dosing Weight 113.636, kg, Sta rt date: 07/30/16 21:57:00 SURVEYOR ROD HELPER, Stop date: 07/30/16 21:57:00 SURVEYOR ROD HELPER Notes: Refrigerate. Start Date: 07/30/16 Stop Date: 07/30/16 Status: Completed aspirin 325 mg tablet 325 mg, 1 tab, Route: DHT, Drug form: TAB, Daily, Dosing Weight 113.636, kg, Sta rt date: 08/02/16 9:00:00 SURVEYOR ROD HELPER, Duration: 30 day, Stop date: 08/31/16 9:00:00 SURVEYOR ROD HELPER Notes: Take with food. Start Date: 08/02/16 Stop Date: 08/07/16 Status: Discontinued aspirin 325 mg tablet 325 mg, 1 tab, Route: AK, Drug form: TAB, ONCE, Dosing Weight 113.636, kg, Start date: 07/30/16 18:16:00 SURVEYOR ROD HELPER, Stop date: 07/30/16 18:16:00 SURVEYOR ROD HELPER Notes: Take with food. Start Date: 07/30/16 Stop Date: 07/30/16 Status: Deleted aspirin 325 mg tablet 325 mg, 1 tab, Route: PO, Drug form: TAB, ONCE, Dosing Weight 113.636, kg, Start date: 07/30/16 22:00:00 SURVEYOR ROD HELPER, Stop date: 07/30/16 22:00:00 SURVEYOR ROD HELPER Notes: Take with food. Start Date: 07/30/16 Stop Date: 07/30/16 Status: Canceled aspirin 325 mg tablet 325 mg = 1 tab, DHT, Daily, 0 Refill(s) Start Date: 08/07/16 Stop Date: 08/21/16 Status: Ordered atenolol 50 mg oral tablet 50 mg = 1 tab, PO, Bedtime, # 30 tab, 0 Refill(s) Start Date: 07/19/16 Stop Date: 08/07/16 Status: Discontinued Augmentin 875 mg oral tablet 1 tab, Route: DHT, Drug Form: TAB, Dosing Weight 113.636, kg, Q12H, Start date: 08/07/16 13:00:00 SURVEYOR ROD HELPER, Duration: 30 day, Stop date: 09/06/16 9:00:00 CDT Notes: With food.(Same as: Augmentin 875) Start Date: 08/07/16 Stop Date: 08/07/16 Status: Discontinued Augmentin 875 mg oral tablet 1 tab, DHT, Q12H, 0 Refill(s) Start Date: 08/07/16 Status: Ordered bacitracin topical 1 appl, Route: TOP, Q8H, Drug form: OINT, thin layer to neck and face incisions, Start date: 07/31/16 0:00:00 SURVEYOR ROD HELPER, Duration: 30 day, Stop date: 08/29/16 16:00:00 SURVEYOR ROD HELPER Start Date: 07/31/16 Stop Date: 08/07/16 Status: Discontinued Beneprotein 7 gm pkt 1 pkt, Route: T FEED, Drug Form: PWDR, Dosing Weight 113.636, kg, 5X Day, Start date: 08/05/16 10:00:00 SURVEYOR ROD HELPER, Duration: 30 day, Stop date: 09/04/16 6:00:00 CDT Notes: (Same as: Beneprotein) Start Date: 08/05/16 Stop Date: 08/07/16 Status: Discontinued buPROPion 150 mg, 2 tab, Route: NG, Drug form: TAB, Q12H, Dosing Weight 113.636, kg, Start date: 07/31/16 11:03:00 SURVEYOR ROD HELPER, Duration: 30 day, Stop date: 08/30/16 9:00:00 SURVEYOR ROD HELPER Notes: (Same As: Wellbutrin) Start Date: 07/31/16 Stop Date: 08/07/16 Status: Discontinued buPROPion 150 mg/24 hours oral extended release tablet 150 mg = 1 tab, PO, BID, # 30 tab, 0 Refill(s) Start Date: 07/19/16 Status: Ordered celecoxib 200 mg, 1 cap, Route: PO, Drug form: CAP, Q12H, Dosing Weight 113.636, kg, Prior ity: NOW, Start date: 07/31/16 4:16:00 SURVEYOR ROD HELPER, Duration: 48 hr, Stop date: 08/01/16 21:00:00 SURVEYOR ROD HELPER Notes: NSAID. Please check indication. Not for seizure. (Same As: CeleBREX) Start Date: 07/31/16 Stop Date: 08/01/16 Status: Completed chlorhexidine topical 0.12% liquid 15 ml, Route: S&SPIT, BID, Drug form: LIQ, Start date: 08/07/16 17:00:00 SURVEYOR ROD HELPER, Duration: 30 day, Stop date: 09/06/16 9:00:00 CDT Notes: (Same As: Peridex) Start Date: 08/07/16 Stop Date: 08/07/16 Status: Canceled chlorhexidine topical 0.12% liquid 0.018 gm = 15 mL, S&SPIT, BID, 0 Refill(s) Start Date: 08/07/16 Status: Ordered Dulcolax Laxative 10 mg, 1 supp, Route: AK, Drug form: SUPP, Daily, Dosing Weight 113.636, kg, Sta rt date: 08/03/16 9:00:00 SURVEYOR ROD HELPER, Duration: 30 day, Stop date: 09/01/16 9:00:00 CDT Notes: (Same As: Dulcolax, Bisco-Lax) Start Date: 08/03/16 Stop Date: 08/07/16 Status: Discontinued Dulcolax Laxative 10 mg, 1 supp, Route: AK, Drug form: SUPP, ONCE, Dosing Weight 113.636, kg, Star t date: 08/01/16 7:11:00 SURVEYOR ROD HELPER, Stop date: 08/01/16 7:11:00 SURVEYOR ROD HELPER Notes: (Same As: Dulcolax, Bisco-Lax) Start Date: 08/01/16 Stop Date: 08/01/16 Status: Completed DuoNeb inhalation solution 3 ml, Route: NEB, Drug Form: SOLN, Dosing Weight 113.636, kg, RQ6H, Start date: 07/31/16 12:00:00 SURVEYOR ROD HELPER, Stop date: 08/30/16 8:00:00 SURVEYOR ROD HELPER Notes: (Same as: Duoneb) Start Date: 07/31/16 Stop Date: 08/07/16 Status: Discontinued DuoNeb inhalation solution 3 mL, NEB, RQ6H, 0 Refill(s) Start Date: 08/07/16 Status: Ordered fentaNYL 1000microgram/20ml drip (pyxis) 1,000 microgram 1,000 microgram, 20 mL, Rate: Titrate, Start Dose: 50 microgram/hr, Titration: 2 5 microgram/hour every 15 minutes, Goal(s): RASS -2, Max Dose: 300 microgram/hr, Route: IV, Dosing Weight 113.636 kg, Total Volume: 20, Start date: 07/30/16 19: 15:00 SURVEYOR ROD HELPER,... Start Date: 07/30/16 Stop Date: 07/31/16 Status: Discontinued glycopyrrolate 0.1 mg, 0.5 mL, Route: IVP, Drug form: INJ, TID, Dosing Weight 113.636, kg, Star t date: 08/03/16 13:00:00 SURVEYOR ROD HELPER, Duration: 30 day, Stop date: 09/02/16 9:00:00 CDT Notes: (Same as: Ariel) Start Date: 08/03/16 Stop Date: 08/07/16 Status: Discontinued heparin Route: IVP, ONCE, Dosing Weight 113.636, kg, Start date: 07/30/16 16:17:00 SURVEYOR ROD HELPER, Stop date: 07/30/16 16:17:00 SURVEYOR ROD HELPER Start Date: 07/30/16 Stop Date: 07/30/16 Status: Deleted heparin 7,500 unit, 1.5 mL, Route: SUB-Q, Drug form: INJ, Q8H, Dosing Weight 113.636, kg , Start date: 07/31/16 16:00:00 SURVEYOR ROD HELPER, Duration: 30 day, Stop date: 08/30/16 8:00: 00 SURVEYOR ROD HELPER Notes: porcine heparin Start Date: 07/31/16 Stop Date: 08/07/16 Status: Discontinued heparin 7,500 unit = 1.5 mL, SUB-Q, Q8H, 0 Refill(s) Start Date: 08/07/16 Status: Ordered hydrALAZINE 20 mg, 1 mL, Route: IVP, Drug form: INJ, Q6H, Dosing Weight 113.636, kg, PRN Celina vated BP, Start date: 07/30/16 18:21:00 SURVEYOR ROD HELPER, Stop date: 08/29/16 18:20:00 SURVEYOR ROD HELPER Notes: (Same as: Apresoline)Push over 5 minutes Start Date: 07/30/16 Stop Date: 08/07/16 Status: Discontinued labetalol 20 mg, 4 mL, Route: IVP, Drug form: INJ, Q6H, Dosing Weight 113.636, kg, PRN Hyp ertension, Goal SBP 120-140, Start date: 07/30/16 18:22:00 SURVEYOR ROD HELPER, Duration: 30 day , Stop date: 08/29/16 18:21:00 SURVEYOR ROD HELPER Start Date: 07/30/16 Stop Date: 08/07/16 Status: Discontinued Lactated Ringers 1,000 mL 1,000 mL, Rate: 100 ml/hr, Infuse over: 10 hr, Route: IV, Dosing Weight 113.636 kg, Total Volume: 1,000, Start date: 07/30/16 18:25:00 SURVEYOR ROD HELPER, Duration: 30 day, St op date: 08/29/16 18:24:00 SURVEYOR ROD HELPER Start Date: 07/30/16 Stop Date: 07/31/16 Status: Discontinued melatonin DHT, Bedtime, PRN as needed for insomnia, 0 Refill(s) Start Date: 08/07/16 Status: Ordered Melatonin 0.25 mg/mL oral liquid 1 mg, 1 mL, Route: DHT, Drug Form: LIQ, Dosing Weight 113.636, kg, Bedtime, PRN as needed for insomnia, Start date: 08/03/16 10:42:00 SURVEYOR ROD HELPER, Duration: 30 day, Sto p date: 09/02/16 10:41:00 CDT Start Date: 08/03/16 Stop Date: 08/07/16 Status: Discontinued metoprolol 5 mg/5 ml INJ 5 mg, 5 mL, Route: IVP, Drug form: INJ, Q20Min, Dosing Weight 113.636, kg, PRN H ypertension, Start date: 07/30/16 18:21:00 SURVEYOR ROD HELPER, Duration: 30 day, Stop date: 03/09 18:20:00 SURVEYOR ROD HELPER Notes: (Same as: Lopressor)Push over 2 minutes Start Date: 07/30/16 Stop Date: 07/31/16 Status: Discontinued ondansetron 2 mg/mL injectable solution 4 mg = 2 mL, IVP, Q6H, PRN as needed for nausea/vomiting, 0 Refill(s) Start Date: 08/07/16 Status: Ordered oxyCODONE 5 mg oral tablet 5 mg, 1 tab, Route: PO, Drug form: TAB, Q6H, Dosing Weight 113.636, kg, PRN Pain Score 4-6, Start date: 07/31/16 8:37:00 SURVEYOR ROD HELPER, Duration: 30 day, Stop date: 08/30 8:36:00 SURVEYOR ROD HELPER Notes: (Same as: Roxicodone) Start Date: 07/31/16 Stop Date: 08/07/16 Status: Discontinued PHOS-NaK 2 pkt, Route: PO, Drug Form: PDR/REC, Dosing Weight 113.636, kg, TID-Meals, Star t date: 08/01/16 12:00:00 SURVEYOR ROD HELPER, Duration: 30 day, Stop date: 08/31/16 8:00:00 SURVEYOR ROD HELPER Notes: (Same as: Phos-NaK) Each 1.5 gm pkt has 250mg phosphorous. Mix w/2.5oz w ater and stir. Start Date: 08/01/16 Stop Date: 08/07/16 Status: Discontinued potassium phosphate-sodium phosphate 250 mg-280 mg-160 mg oral powder for recons titution 2 pkt, PO, TID-Meals, 0 Refill(s) Start Date: 08/07/16 Status: Ordered pregabalin 100 mg, 1 cap, Route: PO, Drug form: CAP, Q8H, Dosing Weight 113.636, kg, Priori ty: NOW, Start date: 07/31/16 4:16:00 SURVEYOR ROD HELPER, Duration: 48 hr, Stop date: 08/02/16 0:00:00 SURVEYOR ROD HELPER Notes: (Same as: Lyrica) Start Date: 07/31/16 Stop Date: 07/31/16 Status: Discontinued propofol INJ 1,000 mg 1,000 mg, 100 mL, Rate: Titrate, Start Dose: 5 microgram/kg/min, Titration: 5 mi crogram/kg/min every 15 min, Goal(s): RASS -2, Max Dose: 50 microgram/kg/min, Ro gisele: IV, Dosing Weight 113.636 kg, Total Volume: 100, Start date: 07/30/16 19:22 :00 SURVEYOR ROD HELPER, Du... Notes: If Diprivan - change bottle & tubing every 12 hrPer state nursing law propofol can only be given by a nurse if patient is intubated or being intubated (unless the nurse is a AUTOMATIC [employer]N GRINDER OPERATOR). Same as: Diprivan Start Date: 07/30/16 Stop Date: 07/31/16 Status: Discontinued quinapril 20 mg oral tablet 20 mg = 1 tab, PO, BID, # 30 tab, 0 Refill(s) Start Date: 07/19/16 Stop Date: 08/07/16 Status: Discontinued Reglan 5 mg, 1 mL, Route: IV, Drug form: INJ, ONCE, Dosing Weight 113.636, kg, Start da te: 08/01/16 7:11:00 SURVEYOR ROD HELPER, Stop date: 08/01/16 7:11:00 SURVEYOR ROD HELPER Notes: (Same as: Reglan) Start Date: 08/01/16 Stop Date: 08/01/16 Status: Completed Stiolto Respimat 2.5 mcg-2.5 mcg inhalation aerosol 2 puff, INHALATION, Daily, 0 Refill(s) Start Date: 07/19/16 Stop Date: 08/07/16 Status: Discontinued Tums 1,000 mg, 2 tab, Route: CHEW, Drug form: CHEWTAB, TID, Dosing Weight 113.636, kg , PRN Indigestion, Start date: 08/06/16 20:49:00 SURVEYOR ROD HELPER, Duration: 30 day, Stop bg e: 09/05/16 20:48:00 CDT Notes: (Same As: Tums)Calcium Carbonate 500 mg = 200 mg elemental calcium Dose = mg calcium carbonate ( mg elemental calcium) Start Date: 08/06/16 Stop Date: 08/07/16 Status: Discontinued Tylenol 1,000 mg, 31.23 mL, Route: NJ, Drug form: LIQ, Q6Hnow, Dosing Weight 113.636, kg , Start date: 08/03/16 1:00:00 SURVEYOR ROD HELPER, Duration: 30 day, Stop date: 09/01/16 19:00: 00 CDT Notes: Max acetaminophen = 4000mg/day (4 gm/day). (Same as: Tylenol) Start Date: 08/03/16 Stop Date: 08/07/16 Status: Discontinued Unasyn 3 gm, Route: IVPB, Drug form: PDR/INJ, ABXQ6H, Dosing Weight 113.636, kg, Start date: 07/30/16 19:00:00 SURVEYOR ROD HELPER, Duration: 30 day, Stop date: 08/29/16 13:00:00 SURVEYOR ROD HELPER Start Date: 07/30/16 Stop Date: 07/30/16 Status: Canceled Zofran 4 mg, 2 mL, Route: IVP, Drug form: INJ, Q6H, Dosing Weight 113.636, kg, PRN as n eeded for nausea/vomiting, Start date: 08/03/16 23:41:00 SURVEYOR ROD HELPER, Duration: 30 day, Stop date: 09/02/16 23:40:00 CDT Notes: (Same as: Zofran) MEDICATION WASTE Product Size: 4 mgProduct Was jeremiah: ___ mg Start Date: 08/03/16 Stop Date: 08/07/16 Status: Discontinued Zosyn 3.375 gm, Route: IVPB, Drug form: PDR/INJ, ABXQ6H, Dosing Weight 113.636, kg, St art date: 07/30/16 19:00:00 SURVEYOR ROD HELPER, Duration: 30 day, Stop date: 08/29/16 13:00:00 SURVEYOR ROD HELPER Notes: (Same as: Zosyn)Dosing based on Piperacillin component MEDICATION [place] Product Size: 3375 mgProduct Wasted: ___ mg Start Date: 07/30/16 Stop Date: 08/07/16 Status: Discontinued Results BLOOD BANK RESULTS 1 2 3 Most recent to oldest [Reference Range]: B POS *Unknown* (07/30/16 6:20 AM) ABO/Rh Negative (07/30/16 6:20 AM) Antibody Scrn ELECTROLYTES 1 2 3 Most recent to oldest [Reference Range]: 145 mEq/L (08/07/16 12:44 AM) 142 mEq/L (08/06/16 4:28 AM) 144 mEq/L (08/03/16 5:42 AM) Sodium Lvl [135-145 mEq/L] 4.2 mEq/L (08/07/16 12:44 AM) 3.9 mEq/L (08/06/16 4:28 AM) 4.0 mEq/L (08/03/16 5:42 AM) Potassium Lvl [3.5-5.1 mEq/L] 109 mEq/L (08/07/16 12:44 AM) 106 mEq/L (08/06/16 4:28 AM) 106 mEq/L (08/03/16 5:42 AM) Chloride Lvl [95-109 mEq/L] 29 mEq/L (08/07/16 12:44 AM) 30 mEq/L (08/06/16 4:28 AM) 31 mEq/L (08/03/16 5:42 AM) CO2 [24-32 mEq/L] 11.2 mEq/L (08/07/16 12:44 AM) 9.9 mEq/L *LOW* (08/06/16 4:28 AM) 11.0 mEq/L (08/03/16 5:42 AM) AGAP [10.0-20.0 mEq/L] CHEM PANEL 1 2 3 Most recent to oldest [Reference Range]: 0.90 mg/dL (08/07/16 12:44 AM) 0.80 mg/dL (08/06/16 4:28 AM) 0.86 mg/dL (08/03/16 5:42 AM) Creatinine Lvl [0.50-1.40 mg/dL] 89 mL/min/1.73m2 1 *NA* (08/07/16 12:44 AM) 94 mL/min/1.73m2 2 *NA* (08/06/16 4:28 AM) 91 mL/min/1.73m2 3 *NA* (08/03/16 5:42 AM) eGFR 23 mg/dL *HI* (08/07/16 12:44 AM) 21 mg/dL (08/06/16 4:28 AM) 17 mg/dL (08/03/16 5:42 AM) BUN [7-22 mg/dL] 107 mg/dL *HI* (08/07/16 12:44 AM) 110 mg/dL *HI* (08/06/16 4:28 AM) 122 mg/dL *HI* (08/03/16 5:42 AM) Glucose Lvl [70-99 mg/dL] 8.4 mg/dL *LOW* (08/07/16 12:44 AM) 8.2 mg/dL *LOW* (08/06/16 4:28 AM) 8.3 mg/dL *LOW* (08/03/16 5:42 AM) Calcium Lvl [8.5-10.5 mg/dL] 2.6 mg/dL (08/03/16 5:42 AM) 2.2 mg/dL *LOW* (08/02/16 12:49 AM) 2.1 mg/dL *LOW* (08/01/16 1:54 AM) Phosphorus [2.5-4.5 mg/dL] 2.5 mg/dL *HI* (08/03/16 5:42 AM) 2.4 mg/dL (08/02/16 12:49 AM) 2.2 mg/dL (08/01/16 1:54 AM) Magnesium Lvl [1.8-2.4 mg/dL] 1Result Comment: The eGFR is calculated using the [...] from the National Kidney Disease Education Program ( NKDEP) which additionally recommends that when the eGFR is used in patients with extremes of body mass index for purposes of drug dosing, the eGFR should be mul tiplied by the estimated BMI. 2Result Comment: The eGFR is calculated using the [...] from the National Kidney Disease Education Program ( NKDEP) which additionally recommends that when the eGFR is used in patients with extremes of body mass index for purposes of drug dosing, the eGFR should be mul tiplied by the estimated BMI. 3Result Comment: The eGFR is calculated using the [...] from the National Kidney Disease Education Program ( NKDEP) which additionally recommends that when the eGFR is used in patients with extremes of body mass index for purposes of drug dosing, the eGFR should be mul tiplied by the estimated BMI. PARATHYROID PROFILE 1 2 3 Most recent to oldest [Reference Range]: 1.04 mMol/L *LOW* (07/31/16 1:34 AM) Ca Ion WB [1.05-1.25 mMol/L] 1.05 mMol/L (07/31/16 1:34 AM) Ca Norm WB [1.05-1.25 mMol/L] URINE AND STOOL 1 2 3 Most recent to oldest [Reference Range]: Clear (07/31/16 12:55 PM) UA Turbidity [Clear] Yellow *NA* (07/31/16 12:55 PM) UA Color [Yellow] 5.5 (07/31/16 12:55 PM) UA pH [5.0-8.0] 1.033 *HI* (07/31/16 12:55 PM) UA Spec Grav [<=1.030] Negative mg/dL *NA* (07/31/16 12:55 PM) UA Glucose [Negative mg/dL] Negative (07/31/16 12:55 PM) UA Blood [Negative] Negative mg/dL *NA* (07/31/16 12:55 PM) UA Ketones [Negative mg/dL] 30 mg/dL *ABN* (07/31/16 12:55 PM) UA Protein [Negative mg/dL] <=1.0 mg/dL *NA* (07/31/16 12:55 PM) UA Urobilinogen [0.1-1.0 mg/dL] Negative *NA* (07/31/16 12:55 PM) UA Bili [Negative] Trace *ABN* (07/31/16 12:55 PM) UA Leuk Est [Negative] Negative (07/31/16 12:55 PM) UA Nitrite [Negative] 7 /HPF *HI* (07/31/16 12:55 PM) UA WBC [0-5 /HPF] 3 /HPF *HI* (07/31/16 12:55 PM) UA RBC [0-2 /HPF] Occasional /HPF *NA* (07/31/16 12:55 PM) UA Bacteria [None Seen /HPF] None Seen *NA* (07/31/16 12:55 PM) UA Sq Epi Occasional /HPF *NA* (07/31/16 12:55 PM) UA Amorph [place] [None Seen /HPF] Few /LPF *NA* (07/31/16 12:55 PM) UA Mucus [None Seen /LPF] BODY FLUIDS 1 2 3 Most recent to oldest [Reference Range]: 157 unit/L *NA* (08/02/16 1:24 PM) Amylase BF ERIBERTO Drain *NA* (08/02/16 1:24 PM) Amyl BF Type 35 mg/dL *NA* (08/02/16 1:24 PM) Trig BF ERIBERTO Drain *NA* (08/02/16 1:24 PM) Trig BF Type HEMATOLOGY 1 2 3 Most recent to oldest [Reference Range]: 11.8 K/CMM *HI* (08/07/16 12:44 AM) 10.4 K/CMM (08/06/16 4:28 AM) 9.9 K/CMM (08/05/16 6:07 AM) WBC [3.7-10.4 K/CMM] 3.08 M/CMM *LOW* (08/07/16 12:44 AM) 3.26 M/CMM *LOW* (08/06/16 4:28 AM) 3.35 M/CMM *LOW* (08/05/16 6:07 AM) RBC [4.70-6.10 M/CMM] 9.5 g/dL *LOW* (08/07/16 12:44 AM) 9.9 g/dL *LOW* (08/06/16 4:28 AM) 9.9 g/dL *LOW* (08/05/16 6:07 AM) Hgb [14.0-18.0 g/dL] 28.4 % *LOW* (08/07/16 12:44 AM) 29.7 % *LOW* (08/06/16 4:28 AM) 30.5 % *LOW* (08/05/16 6:07 AM) Hct [42.0-54.0 %] 92.1 fL (08/07/16 12:44 AM) 91.2 fL (08/06/16 4:28 AM) 91.2 fL (08/05/16 6:07 AM) MCV [80.0-94.0 fL] 30.7 pg (08/07/16 12:44 AM) 30.3 pg (08/06/16 4:28 AM) 29.6 pg (08/05/16 6:07 AM) MCH [27.0-31.0 pg] 33.3 g/dL (08/07/16 12:44 AM) 33.3 g/dL (08/06/16 4:28 AM) 32.4 g/dL (08/05/16 6:07 AM) MCHC [32.0-36.0 g/dL] 15.3 % *HI* (08/07/16 12:44 AM) 15.3 % *HI* (08/06/16 4:28 AM) 14.9 % *HI* (08/05/16 6:07 AM) RDW [11.5-14.5 %] 206 K/CMM (08/07/16 12:44 AM) 181 K/CMM (08/06/16 4:28 AM) 175 K/CMM (08/05/16 6:07 AM) Platelet [133-450 K/CMM] 9.8 fL (08/07/16 12:44 AM) 10.0 fL (08/06/16 4:28 AM) 10.3 fL (08/05/16 6:07 AM) MPV [7.4-10.4 fL] 80.0 % *HI* (08/07/16 12:44 AM) 76.7 % *HI* (08/06/16 4:28 AM) 74.0 % (08/05/16 6:07 AM) Segs [45.0-75.0 %] 1.0 % (08/05/16 6:07 AM) Bands [0.0-11.0 %] 9.5 % *LOW* (08/07/16 12:44 AM) 9.8 % *LOW* (08/06/16 4:28 AM) 10.0 % *LOW* (08/05/16 6:07 AM) Lymphocytes [20.0-40.0 %] 0.0 % (08/05/16 6:07 AM) Atypical Lymphs [<=0.0 %] 8.6 % (08/07/16 12:44 AM) 10.5 % (08/06/16 4:28 AM) 10.0 % (08/05/16 6:07 AM) Monocytes [2.0-12.0 %] 1.6 % (08/07/16 12:44 AM) 2.7 % (08/06/16 4:28 AM) 1.0 % (08/05/16 6:07 AM) Eosinophils [0.0-4.0 %] 0.3 % (08/07/16 12:44 AM) 0.3 % (08/06/16 4:28 AM) 1.0 % (08/05/16 6:07 AM) Basophils [0.0-1.0 %] 1.0 % (08/05/16 6:07 AM) Metamyelocytes [0.0-1.0 %] 2.0 % *HI* (08/05/16 6:07 AM) Myelocytes [<=0.0 %] 9.5 K/CMM *HI* (08/07/16 12:44 AM) 7.9 K/CMM (08/06/16 4:28 AM) 7.4 K/CMM (08/05/16 6:07 AM) Segs-Bands # [1.5-8.1 K/CMM] 1.1 K/CMM (08/07/16 12:44 AM) 1.0 K/CMM (08/06/16 4:28 AM) 1.0 K/CMM (08/05/16 6:07 AM) Lymphocytes # [1.0-5.5 K/CMM] 1.0 K/CMM *HI* (08/07/16 12:44 AM) 1.1 K/CMM *HI* (08/06/16 4:28 AM) 1.0 K/CMM *HI* (08/05/16 6:07 AM) Monocytes # [0.0-0.8 K/CMM] 0.2 K/CMM (08/07/16 12:44 AM) 0.3 K/CMM (08/06/16 4:28 AM) 0.1 K/CMM (08/05/16 6:07 AM) Eosinophils # [0.0-0.5 K/CMM] 0.1 K/CMM (08/05/16 6:07 AM) 0.1 K/CMM (07/19/16 10:21 AM) Basophils # [0.0-0.2 K/CMM] Moderate *ABN* (08/05/16 6:07 AM) Polychrom [None Seen] 14.7 seconds (07/30/16 6:02 AM) PT [12.0-14.7 seconds] 1.13 (07/30/16 6:02 AM) INR [0.85-1.17] 35.6 seconds (07/30/16 6:02 AM) PTT [22.9-35.8 seconds] Immunizations No data available for this section Procedures No data available for this section Social History Social History Type Response Smoking Status Former smoker; Type: Cigare ttes; Previous treatment: None; Ready to change: No; Concerns about tobacco use in house hold: No; Exposure to Tobacco Smoke None; Cigarette Smoking Last 365 Days N o; Reg Smoking Cessation Counseling No Assessment and Plan Extracted from: Title: OMFS Progress Note Author: Dylan Patel DDS Bg e: 08/07/16 OMFS Progress Note Date and time: [...] better. Pt was transferred to floor and Jadiel was DC on 08/02/16. PT/OT consulted on 08/03/16 and pt tolerated well OOB to chair with ambulation around the harmon. On 08/05/16, Pt was downsized to 6 cuffless with PMV and 1x neck drain and 1x leg drain removed. Pt was capped on 08/06/16 and tolerating well. No complaints. Objective: VitalsTmp(F)[id number] 08/07 04:19----47037/77-------- 08/07 03:[id number]/473307 21% 08/06 23:2197.3062458/327478 21% 08/06 20:2598.1279445/750716 21% 08/06 16:[id number]/190128--- 24 Hr Tmax: 98.3F (36.83c) at 08/06 08:1 6Vital Signs are the last 5 in the [...] Consults - PT/OT for ambulation assistance. OOB t o chair - Nutrition for Bolus feed recommendatio ns - Case management for transfer to SNF [...] Endo - Insulin sliding scale / fingersticks q 6h Neuro - Wean pain medications via DHT - No bosch. UOP is good. GI - NPO / continue bolus feeds Fluids / Electrolytes / Nutrition - IV fluids DC Dispo: Hospitalist is primary. Pt ready to DC to SNF/[facility] today. Pt to f/u with Dr. Butler at [facility] on 08/14/16. Pt to call [phone] to confirm appointment Discharge with: - Aspirin 325mg [id number] - Augmentin 875mg BID x7 days - [...] Touchdown weight bearing Signature: Dylan Patel DDS escapement matcher Extracted from: Title: OMFS Preop Note Author: Dylan Patel DDS Date: 07/30/16 OMFS Pre-op and update H&P Date: 07/30/16 Attending: Dr. Efraín Butler DDS, MD Pre-op Diagnosis: Left mandibular SCCA Planned procedures: 1. Resection of left mandibular SCCA 2. Left neck dissection 3. Left fibula free flap reconstruction 4. ORIF 5. STSG from anterior thigh 6. 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
--- OUTSIDE RECORDS SUMMARY | 2019-10-31 14:34 | XMS REPORT | Summary of Care ---
Author Author [facility] Organization [facility] Address Unknown Phone Unavailable Encounter HQ Neginntr_lisa(FIN) [id number] Date(s): 09/05/16 - 10/04/16 [facility] [address] [place] [address]- [phone] Discharge Disposition: Home or Self Care Attending [...]
--- OUTSIDE RECORDS SUMMARY | 2019-10-31 14:34 | XMS REPORT | Summary of Care ---
Author Author [facility] Organization [facility] Address Unknown Phone Unavailable Encounter HQ Michele_lisa(FIN) [id number] Date(s): 01/02/17 - 01/02/17 [facility] [address] [place] [address]- Discharge Disposition: Home or Self Care Attending [...]
--- OUTSIDE RECORDS SUMMARY | 2019-10-31 14:34 | XMS REPORT | Summary of Care ---
Author Author [facility] Outpatient Imaging - [facility] Organization [facility] Outpatient Imaging - [facility] Address Unknown Phone Unavailable Encounter HQ Encntr_alias(FIN) [id number] Date(s): 07/02/16 - 07/02/16 [facility] Outpatient Imaging - [place] [address] [place] [address] [phone] Discharge Disposition: Home or Self Care Attending Physician: Efraín Butler DDS, MD Vital Signs [...]
--- OUTSIDE RECORDS SUMMARY | 2019-10-31 14:34 | XMS REPORT | Summary of Care ---
Author Author [facility] Outpatient Imaging - [facility] Organization [facility] Outpatient Imaging - [facility] Address Unknown Phone Unavailable Encounter HQ Encntr_alias(FIN) [id number] Date(s): 07/10/16 - 07/10/16 [facility] Outpatient Imaging - [place] [address] [place] [phone] Discharge Disposition: Home or Self Care Attending [...]
--- OUTSIDE RECORDS SUMMARY | 2019-10-31 14:34 | XMS REPORT ---
Author Author [facility] Organization [facility] Address Unknown Phone Unavailable Care Team Providers Care Chocolate Temperer Name Role Phone Jorge CURRY Unavailable Unavailable SWEET, A LAIRD Unavailable Unavailable Problems This patient has no known problems. Allergies, Adverse Reactions, Alerts This patient has no known allergies or adverse reactions. Medications This patient has no known medications. Encounters Start Date/Time End Date/Time [facility] ID 2019-02-01 10:17:45 Outpatient [id number] 2018-10-28 09:00:00 2018-10-28 09:00:00 Outpatient [id number] Results Test Description Test Time Test Comments Text Results Atomic Results Result Comments US THYROID 2018-12-03 13:16:00 [facility] [address] [place] [address] Patient Name: FAISAL MANCILLA MR #: [id number] : 1950 Age/Sex: 68/M Req #: [id number] Adm Physician: Ordered by: JUSTIN CURRY MD Report #: [id number] Location: US Room/Bed: Procedure: [id number] US/US THYROID Exam Date: 12/03/18 Exam Time: 1140 REPORT STATUS: Signed Thyroid ultrasound. History: Hypothyroidism Comparison: <None available>. Discussion: Transverse and longitudinal images of the thyroid were obtained demonstrating normal echogenicity of the thyroid. The sizes of the lobes are normal with the right thyroid lobe measuring 5.4 x 2.8 x 2.2 cm and the left measuring 4.0 x 1.5 x 1.6 cm. The isthmus is within normal limits measuring 0.4 cm. No nodules or masses are present. IMPRESSION: Normal thyroid ultrasound. Signed by: Dr. Donovan Sullivan DO on 12/03/2018 1:17 PM Dictated By: DONOVAN SULLIVAN DO 16 Transcribed By: JOAQUÍN on 12/03/181316 COPY TO: JUSTIN CURRY MD CT ABDOMEN/PELVIS W [place] [address] Patient Name: FAISAL MANCILLA MR #: [id number] : 1950 Age/Sex: 66/M Req #: [id number] Adm Physician: Ordered by: EDWIN ORTIZ MD Report #: [id number] Location: ER Room/Bed: Procedure: [id number] CT/CT ABDOMEN/PELVIS W Exam Date: Exam Time: REPORT STATUS: Signed EXAM: CT ABDOMEN/PELVIS W DATE: 04/01/2017 12:29 AM INDICATION: Abdominal pain COMPARISON: None TECHNIQUE: The abdomen and pelvis were scanned using a multidetector helical scanner. Coronal and sagittal reformations were obtained. Routine protocol performed. IV Contrast: 100 ml Isovue 370 FINDINGS: Evaluation of the abdomen and pelvis is mildly degraded due to streak artifact from arm positioning. LOWER THORAX: Mild scattered scarring. LIVER/BILIARY: No masses. No ductal dilatation. GALLBLADDER: Contracted or surgically absent SPLEEN: Unremarkable PANCREAS: Unremarkable ADRENALS: No nodules KIDNEYS: Status post right nephrectomy. Normal- appearing left kidney. GI TRACT: Mild to moderate diffuse dilation of the colon which is stool-filled. Redundant sigmoid colon extending into the upper abdomen, without twisting of the mesentery to suggest volvulus. Normal appendix. VESSELS: Unremarkable PERITONEUM/RETROPERITONEUM: No free air or fluid LYMPH NODES: No lymphadenopathy REPRODUCTIVE ORGANS/BLADDER: Unremarkable SOFT TISSUES: Small fat-containing left inguinal hernia. BONES: Multilevel degenerative changes throughout the spine with thoracic kyphosis. Partially imaged right femoral neck ORIF. IMPRESSION: No acute abnormality. Moderately distended stool-filled colon. Signed by: Dr Aubrey Rodriguez MD on 04/01/2017 4:06 AM Dictated By: AUBREY RODRIGUEZ MD 5 Transcribed By: JOAQUÍN on 04/01/17405 COPY TO: EDWIN ORTIZ MD ABDOMEN COMP INCL UPR or DECUB [place] [address] Patient Name: FAISAL MANCILLA MR #: [id number] : 1950 Age/Sex: 66/M Req #: [id number] Adm Physician: Ordered by: EDWIN ORTIZ MD Report #: [id number] Location: ER Room/Bed: Procedure: [id number] DX/ABDOMEN COMP INCL UPR or DECUB Exam Date: 03/31/17 Exam Time: 2350 REPORT STATUS: Signed ABDOMEN COMP INCL UPR or DECUB Clinical history: Pain, constipation Technique: AP view abdomen, supine and upright Comparison: None Findings: Abdomen: Clips are noted overlying the right hemiabdomen. There is moderate diffuse gaseous distention of large and to a lesser extent small bowel. Transverse colon for example measures about 10 cm. Moderate rectal stool burden. No evidence of free air. Other: Minimal bibasilar atelectasis/vascular crowding. Partially imaged right femoral neck rods and scattered degenerative changes. Impression: Moderate diffuse gaseous distention of bowel which may be related to ileus. Attention on follow-up. Signed by: Dr Aubrey Rodriguez MD on 04/01/2017 12:20 AM Dictated By: AUBREY RODRIGUEZ MD Transcribed By: JOAQUÍN on 04/01/1719 COPY TO: EDWIN ORTIZ MD
[2019-10-31] MEDS ORDERED: SODIUM CHLORIDE 0.9% 1000ML 1,000 ML IV STA (14:52)
[2019-10-31] MEDS ORDERED: ONDANSETRON HCL INJ 2MG/ML 2ML 2 MG/ML VIAL IV STA (14:52)
[2019-10-31 15:04] LABS: BASOPHILS # (AUTO) 0.1 (0.0-0.1); BASOPHILS % 0.4 % (0.0-1.0); EOSINOPHILS # (AUTO) 0.3 (0.0-0.4); EOSINOPHILS % 2.4 % (0.0-6.0); HEMATOCRIT 43.9 % (38.2-49.6); HEMOGLOBIN 14.4 g/dL (14.0-18.0); LYMPHOCYTES # (AUTO) 1.3 (1.0-3.2); LYMPHOCYTES % 9.7 % (18.0-39.1); MEAN CORPUSCULAR HEMOGLOBIN 29.4 pg (28-32); MEAN CORPUSCULAR HGB CONC 32.8 g/dL (31-35); MEAN CORPUSCULAR VOLUME 89.6 fL (81-99); MONOCYTES # (AUTO) 0.8 (0.2-0.8); MONOCYTES % 6.3 % (4.4-11.3); NEUTROPHILS # (AUTO) 10.8 (2.1-6.9); NEUTROPHILS % 80.5 % (38.7-80.0); PLATELET COUNT 192 x10e3/uL (140-360); RED CELL DISTRIBUTION WIDTH 14.1 % (11.7-14.4)
[2019-10-31 15:15] LABS: PROTHROMBIN TIME 13.8 seconds (11.9-14.5)
[2019-10-31 15:16] LABS: PARTIAL THROMBOPLASTIN TIME 30.2 seconds (23.8-35.5)
[2019-10-31 15:25] LABS: ALBUMIN 3.8 g/dL (3.5-5.0); ALBUMIN/GLOBULIN RATIO 1.2 (0.8-2.0); ANION GAP 15.2 mmol/L (8-16); CALCIUM 8.8 mg/dL (8.4-10.2); CREATININE, SERUM 1.24 mg/dL (0.72-1.25); POTASSIUM 4.2 mmol/L (3.5-5.1)
[2019-10-31] MEDS ORDERED: MORPHINE SULFATE 2 MG/ML SYR 1ML IV ONE (15:30)
[2019-10-31 15:31] LABS: CREATINE KINASE MB 1.5 ng/mL (0-5.0)
[2019-10-31 15:46] VITALS: BP 114/64
--- NOTE | 2019-10-31 16:00 | Diagnostic Imaging Report ---
Exam: Left humerus and shoulder 2 views History: Pain Comparison: None. Findings: See impression Impression: Transverse fracture of the left humeral neck with mild displacement. Mild glenohumeral arthrosis. Signed by: Dr. Willy Alvarado M.D. on 10/31/2019 3:57 PM
[2019-10-31] MEDS ORDERED: KETOROLAC TROMETHAMINE 30 MG/ML VIAL IV STA (16:17)
--- NOTE | 2019-10-31 16:26 | Diagnostic Imaging Report ---
History:Fall Comparison studies: None Technique: Axial images were obtained from the skull base to the vertex. Coronal and sagittal images reconstructed from the axial data. Dose modulation, iterative reconstruction, and/or weight based adjustment of the mA/kV was utilized to reduce the radiation dose to as low as reasonably achievable. Intravenous contrast: None Findings: Scalp/skull: No abnormalities. No fractures Extra-axial spaces: No masses. No fluid collections. Brain sulci: Appropriate for age. Ventricles: Normal in size and configuration. No hydrocephalus. Parenchyma: No abnormal densities. No masses, hemorrhage, acute or chronic cortical vascular insults. Sellar/suprasellar region: No abnormalities. Craniocervical junction: Patent foramen magnum. No Chiari one malformation. Incidental findings: Mucosal thickening (left frontal sinus, bilateral ethmoid air cells and left maxillary sinus. Subtle atherosclerotic calcifications in the carotid siphons . Impression: No intracranial abnormalities. Signed by: Dr. Wiliam Herr M.D. on 10/31/2019 4:22 PM
--- NOTE | 2019-10-31 16:28 | Diagnostic Imaging Report ---
Examination: Single AP view of the chest. COMPARISON: None. INDICATION: Fall DISCUSSION: Lines/tubes: None. Lungs: The lungs are well inflated and clear. No pneumonia or pulmonary edema. Pleura: No pleural effusion or pneumothorax. Heart and mediastinum: Cardiomegaly. Bones and soft tissues: No acute bony abnormalities. IMPRESSION: 1. No acute cardiopulmonary abnormalities. Signed by: Dr. Willy Alvarado M.D. on 10/31/2019 4:23 PM
[2019-10-31] MEDS ORDERED: LIDOCAINE 4% PATCH TP ONE (16:30)
--- NOTE | 2019-10-31 16:33 | Diagnostic Imaging Report ---
History: Fall Comparison studies: None Technique: Axial images were obtained through the cervical region.. Coronal and sagittal images reconstructed from the axial data. Dose modulation, iterative reconstruction, and/or weight based adjustment of the mA/kV was utilized to reduce the radiation dose to as low as reasonably achievable. Intravenous contrast: None Findings: Soft tissues: No gross abnormalities. Atlantoaxial articulation: Intact. Alignment: Normal lordosis. No scoliosis. Cervicomedullary junction: No abnormalities. The foramen magnum is patent. Vertebrae: Bones are mildly demineralized. No fractures, infection or neoplasm. Degenerative changes: * Mildly degenerated discs from C3 to T1. * Mild spinal canal stenosis at C2-3, moderate at C3-4, mild at C4-5 due to disc osteophyte complexes. * Superimposed foraminal stenosis is mild at C3-4 moderate from C4-5, mild from C5 to C7 due to facet and uncoarthrosis. IMPRESSION: 1. No acute abnormalities. 2. No fractures or subluxations. 3. Cannot adequately evaluate for ligament, spinal cord and or vascular abnormalities. 4. Degenerative changes as described. Signed by: Dr. Wiliam Herr M.D. on 10/31/2019 4:30 PM
== END 2019-10-31 16:39 | disposition home or self-care (01) ==
LOC: ER 14:30
DX: S42.302A Unspecified fracture of shaft of humerus, left arm, initial encounter for closed fracture (principal); S00.83XA Contusion of other part of head, initial encounter; S20.219A Contusion of unspecified front wall of thorax, initial encounter; W01.0XXA Fall on same level from slipping, tripping and stumbling without subsequent striking against object, initial encounter; Y92.008 Other place in unspecified non-institutional (private) residence as the place of occurrence of the external cause; I10 Essential (primary) hypertension; J44.9 Chronic obstructive pulmonary disease, unspecified; Z85.818 Personal history of malignant neoplasm of other sites of lip, oral cavity, and pharynx; Z85.528 Personal history of other malignant neoplasm of kidney; M54.2 Cervicalgia
CPT/HCPCS: 36415; 70450; 71045; 72125; 73030; 73060; 80053; 82550; 82553; 84484; 85025; 85610; 85730; 93005; 99284; J1885; J2270; J2405; J7030

== ENCOUNTER → 2023-08-20 | Day surgery (SDC) | payer MEDICARE ==
[2023-08-14 11:01] LABS: BASOPHILS # (AUTO) 0.1 (0.0-0.1); BASOPHILS % 0.6 % (0.0-1.0); EOSINOPHILS # (AUTO) 0.3 (0.0-0.4); EOSINOPHILS % 3.9 % (0.0-6.0); HEMOGLOBIN 13.5 g/dL (14.0-18.0); LYMPHOCYTES % 12.9 % (18.0-39.1); MEAN CORPUSCULAR HEMOGLOBIN 30.6 pg (28-32); MEAN CORPUSCULAR HGB CONC 32.1 g/dL (31-35); MEAN CORPUSCULAR VOLUME 95.2 fL (81-99); MONOCYTES # (AUTO) 0.7 (0.2-0.8); MONOCYTES % 9.1 % (4.4-11.3); NEUTROPHILS # (AUTO) 5.9 (2.1-6.9); NEUTROPHILS % 73.3 % (38.7-80.0); PLATELET COUNT 176 x10e3/uL (140-360); RED BLOOD COUNT 4.41 x10e6/uL (4.3-5.7); RED CELL DISTRIBUTION WIDTH 13.1 % (11.7-14.4); WHITE BLOOD COUNT 8.04 x10e3/uL (4.8-10.8)
[~2023-08-20] MED LIST changes: +EPHEDRINE SULFATE INJ 50 MG/ML VIAL ONE; +GLUCAGON FOR INJ 1 MG VIAL ONE; +LEVOTHYROXINE50 MCG PO; +LIDOCAINE HCL 2% LOCAL INJ 5 ML SDV VIAL INJ ONE; +LINZESS290 MCG PO; +LOSARTAN-HCTZ1 EAC1 PO; +MULTI-VITAMIN1 EACH PO; +NEURONTIN100 MG PO; +PRESERVISION L1 EAC1; +PREVAGEN; +PROPOFOL IV EMULSION 10 MG/ML 50 ML VIAL IV ONE; +STIOLTO RESPIMAT4 GM; +VITAMIN B-225 MG PO
== END | disposition home or self-care (01) ==
LOC: OR 06:59
PROVIDERS: ATTEND Internal Medicine Gastroenterology
DX: Z12.11 Encounter for screening for malignant neoplasm of colon (principal); D12.4 Benign neoplasm of descending colon; D12.8 Benign neoplasm of rectum; K59.09 Other constipation; K58.9 Irritable bowel syndrome, unspecified; K64.8 Other hemorrhoids; Z71.3 Dietary counseling and surveillance; I10 Essential (primary) hypertension; Z71.89 Other specified counseling; J44.9 Chronic obstructive pulmonary disease, unspecified; E03.9 Hypothyroidism, unspecified; L40.9 Psoriasis, unspecified; Z01.810 Encounter for preprocedural cardiovascular examination; Z01.812 Encounter for preprocedural laboratory examination; Z79.899 Other long term (current) drug therapy; Z68.26 Body mass index [BMI] 26.0-26.9, adult; Z85.819 Personal history of malignant neoplasm of unspecified site of lip, oral cavity, and pharynx; Z85.528 Personal history of other malignant neoplasm of kidney; Z85.828 Personal history of other malignant neoplasm of skin
CPT/HCPCS: 36415 ×2; 45385; 82948; 85025; 93005; J1610; J2001; J2704; 45378